=== PATIENT | female | born 1945 | race Caucasian/White ===

== ENCOUNTER 2018-01-25 18:50 | Emergency (ER) | payer MEDICARE, OTHER ==
[~2018-01-25] VITALS: Ht 157.5 cm; Wt 90.7 kg
--- OUTSIDE RECORDS SUMMARY | ~2018-01-25 | XMS | Clinical Summary ---
Demographics + + + | Address | [address] | | | [place] [address] | + + + | Home Phone | | + + + | Preferred Language | Unknown | + + + | Marital Status | Unknown | + + + | Advent Affiliation | Unknown | + + + | Race | Unknown | + + + | Ethnic Group | Unknown | + + + Author + + + | Author | [facility] | | | and [place] | + + + | Organization | [facility] | | | and [place] | + + + | Address | Unknown | + + + | Phone | Unavailable | + + + Support + + +---------+ + | Name | Relationship | Address | Phone | + + +---------+ + | SILVIO TEE | ECON | Unknown | | + + +---------+ + Care Team Providers + +------+ + | Care Cyber Systems Administrator Name | Role | Phone | + +------+ + PP | Unavailable | + +------+ + Allergies Not on File Current Medications Not on file Active Problems Not [...] on file | | + + + Plan of Treatment + + + + + | Health Maintenance | Due Date | Last Done | Comments | + + + + + | Vaccine: | | | | | Dtap/Tdap/Td (1 - | 3 | | | | Tdap) | | | | + + + + + | BREAST CANCER | | | | | SCREENING (MAMM Q2 | 4 | | | | YEARS 50-74) | | | | + + + + + | COLON CANCER | | | | | SCREENING | 4 | | | | (COLONOSCOPY EVERY | | | | | 10 YEARS 50-75) | | | | + + + + + | Vaccine: | | | | | Pneumococcal 65+ | 9 | | | | Low/Medium Risk (1 | | | | | of 2 - PCV13) | | | | + + + + + | Vaccine: Influenza | | | | | (Season Ended) | 8 | | | + + + + + Results Not on filefrom Last 3 Months"
--- OUTSIDE RECORDS SUMMARY | ~2018-01-25 | XMS | Clinical Summary ---
Demographics + + + | Address | [address] | | | [place] [address] | + + + | Home Phone | | + + + | Preferred Language | Unknown | + + + | Marital Status | Unknown | + + + | Confucianism Affiliation | Unknown | + + + | Race | Unknown | + + + | Ethnic Group | Unknown | + + + Author + + + | Author | [facility] | | | and [place] | + + + | Organization | [facility] | | | [...] Team Providers + +------+ + | Care Leases And Land Supervisor Name | Role | Phone | + [...]
[~2018-01-25 18:50] MED LIST: ACETAMINOPHEN325 M1 PO; AMITRIPTYLINE H25 MG PO; CALCIUM ANTACI400 MG PO; CHLORHEXIDINE118 M1 TP; CORTISONE14 GM TP; COUGH CONT100 MG/5 M PO; DIPHENHYDRAMINE25 MG PO; DOCUSATE SODIU100 MG PO; EUCERIN CREME120 GM TP; HYDROGEN PEROXID1 ML TOP; IBUPROFEN600 MG PO; LORAZEPAM1 MG PO; MELATONIN3 MG PO; MELOXICAM15 MG PO; MILK OF MA400 MG/5 M PO; MINERAL OIL25 ML TP; MINERIN CREME454 GM TP; MINERIN LOTION473 ML TP; PHENOBARBITAL60 MG PO; PHENYTOIN SODI200 MG PO; POLYETHYLENE GL17 GM PO; POVIDONE IODIN TP; PROCTOSOL-HC30 GM TOP; PROCTOZONE-HC30 GM RC; RANITIDINE HCL150 MG PO; TRIPLE ANTIBIO3.5 GM; VISTARIL25 MG PO; ZEASORB POWDER71 GM TP; [UNRECOGNIZED DRUG - OTHER]; [UNRECOGNIZED DRUG - OTHER] TP; [UNRECOGNIZED DRUG - OTHER] TP
== END 2018-01-25 19:57 ==
LOC: ED 18:50
DX: T17.920A Food in respiratory tract, part unspecified causing asphyxiation, initial encounter (principal); Z79.899 Other long term (current) drug therapy
CPT/HCPCS: 71045; 99283

== ENCOUNTER 2018-10-02 17:27 | Emergency (ER) | payer MEDICARE, OTHER ==
[~2018-10-02] VITALS: Ht 157.5 cm; Wt 90.7 kg
== END 2018-10-02 19:31 | disposition home or self-care (01) ==
LOC: ED 17:27
DX: S00.33XA Contusion of nose, initial encounter (principal); K21.9 Gastro-esophageal reflux disease without esophagitis; Z79.899 Other long term (current) drug therapy; W10.9XXA Fall (on) (from) unspecified stairs and steps, initial encounter
CPT/HCPCS: 99283

== ENCOUNTER 2019-03-08 05:18 | Inpatient (IN) | payer MEDICARE, OTHER ==
[~2019-03-08] VITALS: Ht 157.5 cm; Wt 87.6 kg
[~2019-03-08 05:18] MED LIST changes: +ADULT WAL-100 MG/5 M PO; -COUGH CONT100 MG/5 M PO; +MINERAL OIL25 ML AU; -MINERAL OIL25 ML TP; +MINERIN CREME113 GM TOP; -MINERIN CREME454 GM TP; +TRIPLE ANTIBIO1 EACH TOP; -TRIPLE ANTIBIO3.5 GM; +ZEASORB POWDER71 GM TOP; -ZEASORB POWDER71 GM TP; -[UNRECOGNIZED DRUG - OTHER] TP
[2019-03-08] MEDS ORDERED: GABAPENTIN300 MG PO (05:29)
[2019-03-08] MEDS ORDERED: SENNA PLUS TAB1 EACH PO (05:30)
[2019-03-08] MEDS ORDERED: OMEPRAZOLE20 MG PO (05:31)
[2019-03-08] MEDS ORDERED: NORTRIPTYLINE H25 MG PO (11:23)
[2019-03-08] MEDS ORDERED: CITRATE OF MAG296 ML PO (11:48)
[2019-03-08] MEDS ORDERED: [UNRECOGNIZED DRUG - OTHER] TOP (11:56)
--- NOTE | 2019-03-09 14:31 | HP ---
[facility] [address] [place], [place] [address] Signed ADMISSION DATE: 03/08/2019 REASON FOR ADMISSION: Fecal impaction with proximal colonic distention. HISTORY: This 73-year-old white woman lives in a care home setting and her primary care physician is Dr. Mcintosh. She has a longstanding history of constipation. She has gone approximately 9 days without bowel movement. She is on a bowel regimen, which is typically followed, which includes Senna Plus tablet on a daily basis. To my knowledge, she is not on a fiber supplement. She does not appear to be particularly ambulatory. She does have mineral oil for her as eardrops, but to my knowledge the mineral oil orally on a p.r.n. basis or otherwise. She has additionally been given magnesium citrate solution as needed and milk of magnesia as needed. Her other medications unrelated to direct bowel caring include a dextromethorphan related cough syrup as needed, Tylenol, antifungal powder for her skin as well as omeprazole 20 mg daily, melatonin 3 mg at night, and nortriptyline 25 mg p.o. daily. Additionally, she takes gabapentin 300 mg three times a day for peripheral neuropathy. The patient presented to the emergency room and was evaluated by Dr. Mcmahan and subsequently Dr. Coffey. Given her significant abdominal distension and apparent discomfort, a CT scan was performed, which showed a dilated proximal colon with solid formed stool episodically noted in the more proximal colon and considerable fecal impaction of the sigmoid in the left and rectum. Additionally noted was marked distention of the bladder with hydroureter. It was postulated that the fecal impaction may be accounting for the bladder distention. Upon discussion with the emergency room physician, a Jerez catheter was placed and decompression of approximately 1900 mL of urine was noted. The patient did get some morphine for pain control. The patient is now on the white, having been admitted to my service for further evaluation and management. PAST MEDICAL HISTORY: Does include developmental delay as previously noted. She is known to have peripheral neuropathy as described. She has had no surgical intervention in the past, but one is Electronically Signed By: SHIRAZ SAVAGE MD 03/09/19 1431 PATIENT NAME: HILARY EDWARDS HISTORY AND PHYSICAL DATE OF : 43 REPORT #: [id number] PHYSICIAN: SHIRAZ SAVAGE MD PCP: GUY MCINTOSH DO REPORT IS CONFIDENTIAL AND NOT TO BE RELEASED WITHOUT AUTHORIZATION [facility] [address] [place], [place] [address] Signed aware of. She is known to have history of aspiration, chronic constipation, reflux disease, and mental retardation with developmental delay. REVIEW OF SYSTEMS: Noncontributory given her inability to interact at this time. PHYSICAL EXAMINATION: GENERAL: This is a white woman who does not look systemically toxic. HEENT: She has protruding lips. Mucous membranes are relatively moist and IV is running. Her trachea is midline. CHEST: Shows no sign of dyspnea or tachypnea in any way. Heart is regular. ABDOMEN: Distended, not with peritoneal signs particularly. There is minimal tenderness. In the left lateral decubitus position, the perineum was examined. There was a bit of stool in the outside of the perianal area. Digital examination shows considerable amount of rectal vault stool. Fecal disimpaction was undertaken by me at this time with nurse at standby. A considerable amount of stool was removed. The stool was moderately firm, but not rock-hard by any means. There was no palpable mass. Disimpaction was undertaken as far as possible until at point of flatus. There remains a fair amount of stool, I am sure. Patient has typical risk factors for a marked fecal impaction including immobility, psychiatric (mental development) issues, inactivity, and no apparent fiber supplement. I have performed fecal disimpaction as an initial maneuver and at this point, enema therapy will be beneficial most likely. She is getting IV fluids. I would not have her eating quite at this point, though she could try some liquids probably. Until more of the distal fecal burden is reduced, would avoid agents from above. There appears no clinical or radiographic evidence of perforation or stercoral ulceration proper. It is see erratically possible that the fecal impaction has caused the bladder outlet obstructive process now decompressed with a Jerez catheter. The chronicity of the problem of bladder distention is manifest by hydroureter on imaging studies. She is said to have a pelvic mass which may require additional intervention. At this point, we will initiate enema therapy and if additional manual disimpactions required, sedation may additionally be of benefit. Shiraz Savage MD Electronically Signed By: SHIRAZ SAVAGE MD 03/09/19 1431 PATIENT NAME: HILAYR EDWARDS HISTORY AND PHYSICAL DATE OF : 43 REPORT #: [id number] PHYSICIAN: SHIRAZ SAVAGE MD PCP: GUY MCINTOSH DO REPORT IS CONFIDENTIAL AND NOT TO BE RELEASED WITHOUT AUTHORIZATION [place] [id number] Signed RITESH/ROSINA /[id number] cc: DO Kash Nails Dr. Copies: GUY MCINTOSH PHONG ~ Electronically Signed By: SHIRAZ SAVAGE MD 03/09/19 1431 PATIENT NAME: JERRYHILARY HISTORY AND PHYSICAL DATE OF : 43 REPORT #: [id number] PHYSICIAN: SHIRAZ SAVAGE MD PCP: GUY MCINTOSH DO REPORT IS CONFIDENTIAL AND NOT TO BE RELEASED WITHOUT AUTHORIZATION
[2019-03-11] MEDS ORDERED: TAMSULOSIN HCL0.4 MG PO (14:27)
[2019-03-11] MEDS ORDERED: HEALTHYLAX17 GM PO (14:28)
[2019-03-11] MEDS ORDERED: KONSYL PSYLLIU3.4 GM PO (14:28)
--- NOTE | 2019-03-12 07:59 | DS ---
[facility] [address] [place], [place] [address] Signed ADMISSION DATE: 03/08/2019 DISCHARGE DATE: 03/11/2019 REASON FOR ADMISSION: This 73-year-old white woman has mental retardation and developmental delay and lives in a nursing home setting with her primary and her primary care physician is Dr. Prabhu Mcintosh. She has a longstanding history of constipation. She has gone most recently approximately 10 days without bowel movement. She is on a bowel regimen, which when typically followed include Senna Plus tablets on a daily basis. She is not on a fiber supplement. She is not on MiraLAX. She has p.r.n. milk of magnesia. She uses no other cathartics generally. She presented to the emergency room with abdominal distention, tenderness, and so forth. Findings were clinically consistent with obstruction of the bowel. She was initially evaluated by Dr. Mcmahan and subsequently by Dr. Coffey and given her abdominal distention, a CT scan was performed, which showed impressive fecal impaction of the low rectum, sigmoid, and proximal dilation of the colon. Concurrently, she was noted to have marked distention of the bowel with hydroureter bilaterally likely bladder obstructed by the fecal impaction as well. She was admitted for further evaluation and care. PERTINENT PHYSICAL EXAMINATION: GENERAL: This is essentially non-relational white woman who does not look systemically toxic. She has an underbite. Trachea is midline. She has no carotid bruit. CHEST: Clear. HEART: Regular without murmur. ABDOMEN: Markedly distended, not particularly tender, however. EXTREMITIES: Showed no clubbing, cyanosis, or edema. Her CT scan showed marked fecal impaction. HOSPITAL COURSE: She has directly admitted to the hospital and given intravenous fluids. Her white count was elevated to 12.6. Her urinalysis was considered normal. A Jerez catheter was placed, which drained 1900 mL of clear yellow urine. Upon my first evaluation, I performed at bedside fecal disimpaction. Approximately 2 and maybe more [employer] can sized amounts of stool were extracted from the rectum. Electronically Signed By: SHIRAZ SAVAGE MD 03/12/19 0759 PATIENT NAME: HILARY EDWARDS DISCHARGE SUMMARY DATE OF : 43 REPORT #: [id number] PHYSICIAN: SHIRAZ SAVAGE MD PCP: PRABHU MCINTOSH DO REPORT IS CONFIDENTIAL AND NOT TO BE RELEASED WITHOUT AUTHORIZATION [facility] [address] [place], [place] [address] Signed This was undertaken till the rectal vault was essentially cleared and flatus was noted. This was reasonably well tolerated by the patient. She was then begun on enema therapy, which included sorbitol and docusate in water. Three sets liters were administered. She then had improvement based on abdominal KUB and subsequent magnesium citrate was given orally. This had little effect initially and repeated showing good effect. Serial abdominal x-ray showed decompression of the bowel and improvement of her impaction. A voiding trial was undertaken upon removal of her catheter after 48 hours of decompression. She failed this unfortunately. She had retention of 540 mL of urine and on that basis, urologic consultation was undertaken with Dr. Ron. The catheter was replaced notably. Consultation with Dr. Ron included the initiation of Flomax. She has recommended prolonged decompression of the bladder for at least 2 weeks, possibly 3 as well as use of Flomax and a voiding trial to be undertaken as an outpatient under her direction. The patient has been started on MiraLAX one packet daily as well as Citrucel one packet daily. Inquiry was made as to whether lactulose might be possible from her caregiver and it is not considered an appropriate approach in this situation. DISCHARGE PLAN: She will return to see Dr. Ron in 2 to 3 weeks and a voiding trial will be undertaken at that time. She will follow up with Dr. Mcintosh on usual basis. She will not be having followup in my office. MEDICATIONS: Her discharge medications will include: 1. Flomax (tamsulosin) 0.4 mg p.o. q.24 hours. 2. Polyethylene glycol 3350, 17 g powder pack b.i.d. 3. Psyllium husk with sugar, Konsyl psyllium fiber packet 3.4 g p.o. daily, #30, refills 12. 4. Continued use of melatonin 3 mg p.o. q.h.s. 5. Mineral oil to ears as needed for wax buildup. 6. Minerin Cream applied topically to feet for dry skin. 7. NutriCare oral paste as needed. 8. Tylenol 650 p.o. q.4 hours as needed for fever. 9. Guaifenesin 100 mg/5 mL 15 mL q.i.d. as needed for cough. Electronically Signed By: SHIRAZ SVAAGE MD 03/12/19 0759 PATIENT NAME: HILARY EDWARDS DISCHARGE SUMMARY DATE OF : 43 REPORT #: [id number] PHYSICIAN: SHIRAZ SAVAGE MD PCP: PRABHU MCINTOSH DO REPORT IS CONFIDENTIAL AND NOT TO BE RELEASED WITHOUT AUTHORIZATION [address] [address] Signed 10. Magnesium hydroxide (milk of magnesia) 400 mg/5 mL 30 mL orally as needed for constipation (mindful of continued use of regimen as noted above). 11. Zeasorb powder 71 g powder, applied topically as needed in shoes. 12. Triple antibiotic ointment topically as needed. 13. Gabapentin 300 mg p.o. t.i.d. 14. Omeprazole 20 mg p.o. daily. 15. Nortriptyline 25 mg p.o. q.h.s. 16. Magnesium citrate 296 mL as needed for constipation episode. 17. Emollient Combination No. 108 (Lubriskin) applied topically as needed for dry skin. She will discontinue for the time being senna Plus tablet given daily. DISCHARGE DIAGNOSES: 1. Severe and advanced and extreme fecal impaction with obstruction of colon and secondary obstruction of bladder. 2. Markedly distended bladder with hydroureter (1900 mL). 3. Mentally retarded, developmental delay. 4. Insomnia. Shiraz Savage MD /MODL /[id number] cc: MD Prabhu Dover DO Copies: KEYONA RON MD, ARIAN DO ~ Electronically Signed By: SHIRAZ SAVAGE MD 03/12/19 0759 PATIENT NAME: HILARY EDWARDS DISCHARGE SUMMARY DATE OF : 43 REPORT #: [id number] PHYSICIAN: SHIRAZ SAVAGE MD PCP: PRABHU MCINTOSH DO REPORT IS CONFIDENTIAL AND NOT TO BE RELEASED WITHOUT AUTHORIZATION
== END 2019-03-11 15:30 | disposition home or self-care (01) | DRG 389 ==
LOC: ED 05:18 → MS 05:19 → ED 05:19 → MS 12:25
PROVIDERS: ADMIT Surgery
DX: K56.41 Fecal impaction (principal); N13.4 Hydroureter; F79 Unspecified intellectual disabilities; K59.09 Other constipation; N32.0 Bladder-neck obstruction; K21.9 Gastro-esophageal reflux disease without esophagitis; N32.89 Other specified disorders of bladder; R33.9 Retention of urine, unspecified; G62.9 Polyneuropathy, unspecified; G47.00 Insomnia, unspecified; Z86.59 Personal history of other mental and behavioral disorders; Z79.899 Other long term (current) drug therapy
CPT/HCPCS: 36415; 51702; 51798; 74018; 74177; 80048; 80053; 81001; 83690; 85025; 99285-25; J1644; J1885; J2270; J2405; J7040; J7120

== ENCOUNTER 2019-08-07 16:35 | Emergency (ER) | payer MEDICARE, OTHER ==
[~2019-08-07] VITALS: Ht 157.5 cm; Wt 86.3 kg
--- OUTSIDE RECORDS SUMMARY | ~2019-08-07 | XMS | Clinical Summary ---
Demographics + + + | Address | [address] | | | [place] [address] | + + + | Home Phone | | + + + | Preferred Language | Unknown | + + + | Marital Status | Unknown | + + + | Druze Affiliation | Unknown | + + + | Race | Unknown | + + + | Ethnic Group | Unknown | + + + Author + + + | Author | [facility] | | | and [place] | + + + | Organization | [facility] | | [...] Team Providers + +------+ + | Care Supervisor Coke Handling Name | Role | Phone | + [...]
--- OUTSIDE RECORDS SUMMARY | ~2019-08-07 | XMS | Clinical Summary ---
Demographics + + + | Address | [address] | | | [place] [address] | + + + | Home Phone | | + + + | Preferred Language | Unknown | + + + | Marital Status | Unknown | + + + | Presybeterian Affiliation | Unknown | + + + | Race | Unknown | + + + | Ethnic Group | Unknown | + + + Author + + + | Author | [facility] | | | and [place] | + + + | Organization | [facility] | | [...] Team Providers + +------+ + | Care Blast Furnace Auxiliaries Supervisor Name | Role | Phone | [...]
[~2019-08-07 16:35] MED LIST changes: +CITRATE OF MAG296 ML PO; +ERYTHROMYCIN1 GM OD; +GABAPENTIN300 MG PO; +HEALTHYLAX17 GM PO; +KONSYL PSYLLIU3.4 GM PO; +NORTRIPTYLINE H25 MG PO; +OMEPRAZOLE20 MG PO; +SENNA PLUS TAB1 EACH PO; +TAMSULOSIN HCL0.4 MG PO; +[UNRECOGNIZED DRUG - OTHER] TOP
--- OUTSIDE RECORDS SUMMARY | 2019-08-07 16:38 | XMS ---
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 Care History Medical/Surgical 04/08/2019 [facility] - Patient is currently established with [facility]. If patient is seen in the ED during business hours. Please contact CHWs at [facility]. Care Recommendation: This patient has had 5 or more Emergency Department visits in the last 12 months.\T\nbsp; Patient requires education on the scope and purpose of the ED as an acute care provider not a Primary Care Provider and should not be utilized for chronic conditions.\T\nbsp; These are guidelines and the provider should exercise clinical judgment when providing care. E.D. VISIT COUNT (12 MO.) 4 [facility] TOTAL 4 NOTE: Visits indicate total known visits. ED/UCC VISIT TRACKING (12 MO.) 08/07/2019 16:35 [facility] TYPE: Emergency COMPLAINT: - CATHETER ISSUE 04/07/2019 12:37 [facility] TYPE: Emergency COMPLAINT: - R EYE PAIN DIAGNOSES: - Unspecified conjunctivitis - Other exterminator (current) drug therapy - OTHER SPECIFIED DISORDERS OF EYE AND ADNEXA - Gastro-esophageal reflux disease without esophagitis 03/08/2019 05:18 [facility] TYPE: Emergency COMPLAINT: - SEVERE FECAL IMPACTION, BLADDER OBSTRUCTION 10/02/2018 17:28 [facility] TYPE: Emergency COMPLAINT: - HEAD INJURY DIAGNOSES: - Fall (on) (from) unspecified stairs and steps, init encntr - Epistaxis - Gastro-esophageal reflux disease without esophagitis - Contusion of nose, initial encounter - Other exterminator (current) drug therapy INPATIENT VISIT TRACKING (12 MO.) 03/08/2019 12:[address] [facility] TYPE: Medical Surgical COMPLAINT: - SEVERE FECAL IMPACTION, BLADDER OBSTRUCTION DIAGNOSES: - Gastro-esophageal reflux disease without esophagitis - Other constipation - Unspecified intellectual disabilities - Polyneuropathy, unspecified - Insomnia, unspecified - Fecal impaction - Other specified disorders of bladder - Other exterminator (current) drug therapy - Gastro-esophageal reflux disease without esophagitis - Hydroureter - Bladder-neck obstruction - Insomnia, unspecified - Personal history of other mental and behavioral disorders - Other constipation - Bladder-neck obstruction - Personal history of other mental and behavioral disorders - Other specified disorders of bladder - Polyneuropathy, unspecified - Retention of urine, unspecified - Other snf (current) drug therapy - Unspecified intellectual disabilities - Hydroureter - Retention of urine, unspecified [email or web address]
[2019-08-07] MEDS ORDERED: REMERON30 MG PO (16:56)
== END 2019-08-07 17:19 | disposition home or self-care (01) ==
LOC: ED 16:35
PROC: 0T9B70Z Drainage of Bladder with Drainage Device, Via Natural or Artificial Opening (ICD-10-PCS; principal; 2019-08-07)
DX: T83.031A Leakage of indwelling urethral catheter, initial encounter (principal); K21.9 Gastro-esophageal reflux disease without esophagitis; Z79.899 Other long term (current) drug therapy
CPT/HCPCS: 51702; 99283-25

== ENCOUNTER 2019-09-29 17:41 | Emergency (ER) | payer MEDICARE, OTHER ==
[~2019-09-29] VITALS: Ht 157.5 cm; Wt 90.8 kg
--- OUTSIDE RECORDS SUMMARY | ~2019-09-29 | XMS | Clinical Summary ---
Demographics + + + | Address | [address] | | | [place] [address] | + + + | Home Phone | | + + + | Preferred Language | Unknown | + + + | Marital Status | Unknown | + + + | Mandaen Affiliation | Unknown | + + + | Race | Unknown | + + + | Ethnic Group | Unknown | + + + Author + + + | Author | [facility] | | | and [place] | + + + | Organization | [facility] | | | and [place] [...] Team Providers + +------+ + | Care Licensed Clinician Name | Role | Phone | + [...] on file | | + + + + + + + | Job Start Date | Occupation | Industry | + + + + | Not on file | Not on file | Not on file | + + + + + + + + | Travel History | Travel Start | Travel End | + + + + + + | No recent travel history available. | + + Last Filed Vital Signs Not on file Plan of Treatment + + + + + | Health Maintenance | Due Date | Last Done | Comments | + + + + + | Vaccine: | | | | | Dtap/Tdap/Td (1 - | 5 | | | | Tdap) | | | | + + + + + | Vaccine: Zoster (1 | | | | | of 2) | 4 | | | + + + + + | Breast Cancer | | | | | Screening | 9 | | | + + + + + | Vaccine: | | | | | Pneumococcal 65+ (1 | 9 | | | | of 2 - PCV13) | | | | + + + + + | Vaccine: Influenza | | | | | (#1) | 9 | | | + + + + + Results Not on filefrom Last 3 Months"
--- OUTSIDE RECORDS SUMMARY | ~2019-09-29 | XMS | Clinical Summary ---
Demographics + + + | Address | [address] | | | [place] [address] | + + + | Home Phone | | + + + | Preferred Language | Unknown | + + + | Marital Status | Unknown | + + + | Mu-Ism Affiliation | Unknown | + + + | Race | Unknown | + + + | Ethnic Group | Unknown | + + + Author + + + | Author | [facility] | | | and [place] | + + + | Organization | [facility] | | | and [place] [...] Team Providers + +------+ + | Care Erp Project Manager Name | Role | Phone | + [...]
--- OUTSIDE RECORDS SUMMARY | ~2019-09-29 | XMS | Encounter Summary ---
Demographics + + + | Address | [address] | | | [place] [address] | + + + | Home Phone | | + + + | Preferred Language | Unknown | + + + | Marital Status | Unknown | + + + | Baptist Affiliation | Unknown | + + + | Race | Unknown | + + + | Ethnic Group | Unknown | + + + Author + + + | Author | [facility] | | | and [place] | + + + | Organization | [facility] | | | and [place] | [...] Team Providers + +------+ + | Care Machine Etcher Name | Role | Phone | + +------+ + PCP | Unavailable | + +------+ + Encounter Details +--------+ + + + + | Date | Type | Department | Care Team | Description | +--------+ + + + + | 10/30/ | Hospital | [facility] | | | | 1995 | Encounter | MED CTR GENERIC OP | | | | | | CONV DEPT [address] | | | | | | [place], | | | | | | [place] [address] | | | | | | [phone] | | | +--------+ + + + [...] recent travel history available. | + + documented as of this encounter Plan of Treatment Not on filedocumented as of this encounter Visit Diagnoses Not on filedocumented in this encounter"
--- OUTSIDE RECORDS SUMMARY | ~2019-09-29 | XMS | Encounter Summary ---
Demographics + + + | Address | [address] | | | [place] [address] | + + + | Home Phone | | + + + | Preferred Language | Unknown | + + + | Marital Status | Unknown | + + + | Presybeterian Affiliation | Unknown | + + + | Race | Unknown | + + + | Ethnic Group | Unknown | + + + Author + + + | Author | [facility] | | | and [place] | + + + | Organization | [facility] | | | and [place] | [...] Team Providers + +------+ + | Care Headliner Installer Name | Role | Phone | + +------+ + PCP | Unavailable | + +------+ + Encounter Details +--------+ + + + + | Date | Type | Department | Care Team | Description | +--------+ + + + + | 10/30/ | Hospital | [facility] | | | | 1996 | Encounter | MED CTR GENERIC OP | | | | | | CONV DEPT [address] | | | | | | [place], | | | | | | [place] [address] | | | | | | [phone] | | | +--------+ + + + [...]
[~2019-09-29 17:41] MED LIST changes: +REMERON30 MG PO
--- OUTSIDE RECORDS SUMMARY | 2019-09-29 17:44 | XMS ---
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 Care History Medical/Surgical 08/10/2019 [facility] Patient\T\nbsp; has appt in Dr Faria office 08/13/2019 @ 10:30am for Cath Change. 04/08/2019 [facility] - Patient is currently established with [facility]. If patient is seen in the ED during business hours. Please contact CHWs at [facility]. Care Recommendation: This patient has had 5 [...] providing care. E.D. VISIT COUNT (12 MO.) 5 [facility] TOTAL 5 NOTE: Visits indicate total known visits. ED/UCC VISIT TRACKING (12 MO.) 09/29/2019 17:41 [facility] TYPE: Emergency COMPLAINT: - CATHETER PROBLEM 08/07/2019 16:35 [facility] TYPE: Emergency COMPLAINT: - CATHETER ISSUE DIAGNOSES: - Leakage of indwelling urethral catheter, initial encounter - Other exterminator helper (current) drug therapy - Gastro-esophageal reflux disease without esophagitis 04/07/2019 12:37 [facility] TYPE: Emergency COMPLAINT: - R EYE PAIN DIAGNOSES: - Unspecified conjunctivitis - Other exterminator helper (current) drug therapy - OTHER SPECIFIED DISORDERS OF EYE AND ADNEXA - Gastro-esophageal reflux disease without esophagitis - Other specified disorders of eye and adnexa 03/08/2019 05:18 [facility] TYPE: Emergency COMPLAINT: - SEVERE FECAL IMPACTION, BLADDER OBSTRUCTION 10/02/2018 17:28 [facility] TYPE: Emergency COMPLAINT: - HEAD INJURY DIAGNOSES: - Fall (on) (from) unspecified stairs and steps, init encntr - Epistaxis - Gastro-esophageal reflux disease without esophagitis - Contusion of nose, initial encounter - Other exterminator helper (current) drug therapy INPATIENT VISIT TRACKING (12 MO.) 03/08/2019 12:25 [facility] TYPE: Medical Surgical COMPLAINT: - SEVERE FECAL IMPACTION, BLADDER OBSTRUCTION DIAGNOSES: - Gastro-esophageal reflux disease without esophagitis - Other constipation - Unspecified intellectual disabilities - Polyneuropathy, unspecified - Insomnia, unspecified - Fecal impaction - Other specified disorders of bladder - Other exterminator helper (current) drug therapy - Gastro-esophageal reflux disease without esophagitis - Hydroureter - Bladder-neck obstruction - Insomnia, unspecified - Personal history of other mental and behavioral disorders - Other constipation - Bladder-neck obstruction - Personal history of other mental and behavioral disorders - Other specified disorders of bladder - Polyneuropathy, unspecified - Retention of urine, unspecified - Other chcf (current) drug therapy - Unspecified intellectual disabilities - Hydroureter - Retention of urine, unspecified [email or web address]
[2019-09-29] MEDS ORDERED: METAMUCIL POWD174 GM PO (20:19)
== END 2019-09-29 18:21 | disposition home or self-care (01) ==
LOC: ED 17:41
DX: Z46.6 Encounter for fitting and adjustment of urinary device (principal); K21.9 Gastro-esophageal reflux disease without esophagitis; Z79.899 Other long term (current) drug therapy
CPT/HCPCS: 51702; 99283-25

== ENCOUNTER 2019-10-10 19:03 | Emergency (ER) | payer MEDICARE, OTHER ==
[~2019-10-10] VITALS: Ht 157.5 cm; Wt 90.8 kg
== END 2019-10-10 20:36 | disposition home or self-care (01) ==
LOC: ED 19:03
DX: T83.038A Leakage of other urinary catheter, initial encounter (principal); N39.0 Urinary tract infection, site not specified; K21.9 Gastro-esophageal reflux disease without esophagitis; Z79.899 Other long term (current) drug therapy
CPT/HCPCS: 51702; 81001; 99283-25

== ENCOUNTER 2019-10-24 03:08 | Emergency (ER) | payer MEDICARE, OTHER ==
[~2019-10-24] VITALS: Ht 157.5 cm; Wt 90.8 kg
[~2019-10-24 03:08] MED LIST changes: +KEFLEX500 MG PO; +METAMUCIL POWD174 GM PO
--- OUTSIDE RECORDS SUMMARY | 2019-10-24 03:10 | XMS ---
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 Care History Medical/Surgical 10/12/2019 [facility] Follow up on 10/15/[address] Faria 10/01/2019 [facility] Patient has prior scheduled appt. with ;Bienvenido on 10/15/2019. 08/10/2019 [facility] Patient\T\nbsp; has appt in Dr Faria office 08/13/2019 @ 10:30am for Kerrie Crowell E.D. VISIT COUNT (12 MO.) [address] [facility] TOTAL 6 NOTE: Visits indicate total known visits. ED/UCC VISIT TRACKING (12 MO.) [facility] COMPLAINT: - CATHETER PROBLEM 10/10/2019 19:04 [facility] TYPE: Emergency COMPLAINT: - CATHETER PROBLEM DIAGNOSES: - Leakage of other urinary catheter, initial encounter - Leakage of other urinary catheter, initial encounter - Other terminal press operator (current) drug therapy - Gastro-esophageal reflux disease without esophagitis - Urinary tract infection, site not specified - Urinary tract infection, site not specified 09/29/2019 17:41 [facility] TYPE: Emergency COMPLAINT: - CATHETER PROBLEM DIAGNOSES: - Gastro-esophageal reflux disease without esophagitis - Encounter for fitting and adjustment of urinary device - Other [place] [facility] (current[facility] drug therapy - Encounter for fitting and adjustment of urinary device 08/07/2019 16:35 [facility] TYPE: Emergency COMPLAINT: - CATHETER ISSUE DIAGNOSES: - Leakage of indwelling urethral catheter, initial encounter - Other terminal press operator (current) drug therapy - Gastro-esophageal reflux disease without esophagitis 04/07/2019 12:37 [facility] TYPE: Emergency COMPLAINT: - R EYE PAIN DIAGNOSES: - Unspecified conjunctivitis - Other terminal press operator (current) drug therapy - OTHER SPECIFIED DISORDERS OF EYE AND ADNEXA - Gastro-esophageal reflux disease without esophagitis - Other specified disorders of eye and adnexa 03/08/2019 05:18 [facility] TYPE: Emergency COMPLAINT: - SEVERE FECAL IMPACTION, BLADDER OBSTRUCTION INPATIENT VISIT TRACKING (12 MO.) 03/08/2019 12:25 [facility] TYPE: Medical Surgical COMPLAINT: - SEVERE FECAL IMPACTION, BLADDER OBSTRUCTION DIAGNOSES: - Gastro-esophageal reflux disease without esophagitis - Other constipation - Unspecified intellectual disabilities - Polyneuropathy, unspecified - Insomnia, unspecified - Fecal impaction - Other specified disorders of bladder - Other terminal press operator (current) drug therapy - Gastro-esophageal reflux disease without esophagitis - Hydroureter - Bladder-neck obstruction - Insomnia, unspecified - Personal history of other mental and behavioral disorders - Other constipation - Bladder-neck obstruction - Personal history of other mental and behavioral disorders - Other specified disorders of bladder - Polyneuropathy, unspecified - Retention of urine, unspecified - Other [place] [facility] [place] (current) drug therapy - Unspecified intellectual disabilities - Hydroureter - Retention of urine, unspecified [email or web address]
== END 2019-10-24 03:57 | disposition home or self-care (01) ==
LOC: ED 03:08
DX: Z46.6 Encounter for fitting and adjustment of urinary device (principal); K21.9 Gastro-esophageal reflux disease without esophagitis; Z79.899 Other long term (current) drug therapy
CPT/HCPCS: 51702; 99283-25

== ENCOUNTER 2019-10-29 17:27 | Emergency (ER) | payer MEDICARE, OTHER ==
[~2019-10-29] VITALS: Ht 157.5 cm; Wt 90.8 kg
[2019-10-29] MEDS ORDERED: HEALTHYLAX17 GM PO (18:14)
[2019-10-29] MEDS ORDERED: MINERIN CREME113 GM TOP (18:15)
[2019-10-29] MEDS ORDERED: ZEASORB AF71 GM TOP (18:16)
[2019-10-29] MEDS ORDERED: TYLENOL325 MG PO (18:17)
[2019-10-29] MEDS ORDERED: CITRATE OF MAG296 ML PO (18:18)
[2019-10-29] MEDS ORDERED: MILK OF MA400 MG/5 M PO (18:19)
[2019-10-29] MEDS ORDERED: TUSSIN COUGH15 MG PO (18:20)
== END 2019-10-29 20:00 | disposition home or self-care (01) ==
LOC: ED 17:27
DX: Z46.6 Encounter for fitting and adjustment of urinary device (principal); K21.9 Gastro-esophageal reflux disease without esophagitis; Z79.899 Other long term (current) drug therapy
CPT/HCPCS: 51702; 99283-25

== ENCOUNTER 2020-06-12 14:42 | Emergency (ER) | payer MEDICARE, OTHER ==
[~2020-06-12] VITALS: Ht 157.5 cm; Wt 90.8 kg
[~2020-06-12 14:42] MED LIST changes: +TUSSIN COUGH15 MG PO; +TYLENOL325 MG PO; +ZEASORB AF71 GM TOP
--- OUTSIDE RECORDS SUMMARY | 2020-06-12 14:46 | XMS ---
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 Care History Medical/Surgical 10/26/2019 [facility] - CATH CHANGE APT -SCHEDULED WITH DR RON-UROLOGIST- 10/27/19. 10/12/2019 [facility] Follow up on 10/15/[address] Ron 10/01/2019 [facility] Patient has prior scheduled appt. with \Nikhil on 10/15/2019. E.D. VISIT COUNT (12 MO.) 6 [facility]. TOTAL 6 NOTE: Visits indicate total known visits. ED/UCC VISIT TRACKING (12 MO.) 06/12/2020 14:43 [facility] TYPE: Emergency COMPLAINT: - CATHETER PROBLEM 10/29/2019 17:27 [facility] TYPE: Emergency COMPLAINT: - CATHETER PROBLEM DIAGNOSES: - Other exterminator helper termite (current) drug therapy - Gastro-esophageal reflux disease without esophagitis - Encounter for fitting and adjustment of urinary device 10/24/2019 03:09 [facility] TYPE: Emergency COMPLAINT: - CATHETER PROBLEM DIAGNOSES: - Encounter for fitting and adjustment of urinary device - Gastro-esophageal reflux disease without esophagitis - Other nursing home (current) drug therapy 10/10/2019 19:04 [facility] TYPE: Emergency COMPLAINT: - CATHETER PROBLEM DIAGNOSES: - Leakage of other urinary catheter, initial encounter - Leakage of other urinary catheter, initial encounter - Other exterminator helper termite (current) drug therapy - Gastro-esophageal reflux disease without esophagitis - Urinary tract infection, site not specified - Urinary tract infection, site not specified 09/29/2019 17:41 [facility] TYPE: Emergency COMPLAINT: - CATHETER PROBLEM DIAGNOSES: - Gastro-esophageal reflux disease without esophagitis - Encounter for fitting and adjustment of urinary device - Other nursing home (current) drug therapy - Encounter for fitting and adjustment of urinary device 08/07/2019 16:35 [facility] TYPE: Emergency COMPLAINT: - CATHETER ISSUE DIAGNOSES: - Leakage of indwelling urethral catheter, initial encounter - Other exterminator helper termite (current) drug therapy - Gastro-esophageal reflux disease without esophagitis INPATIENT VISIT TRACKING (12 MO.) No inpatient visits to display in this time frame [email or web address]
[2020-06-12] MEDS ORDERED: METAMUCIL POWD174 GM PO (15:16)
[2020-06-12] MEDS ORDERED: MILK OF MA400 MG/5 M PO (15:18)
== END 2020-06-12 17:02 | disposition home or self-care (01) ==
LOC: ED 14:42
DX: T83.83XA Hemorrhage due to genitourinary prosthetic devices, implants and grafts, initial encounter (principal); K21.9 Gastro-esophageal reflux disease without esophagitis; Z79.899 Other long term (current) drug therapy
CPT/HCPCS: 51702; 81001; 99283-25

== ENCOUNTER 2020-06-17 11:58 | Emergency (ER) | payer MEDICARE, OTHER ==
[~2020-06-17] VITALS: Ht 157.5 cm; Wt 90.8 kg
--- OUTSIDE RECORDS SUMMARY | ~2020-06-17 | XMS | Clinical Summary ---
Demographics + + + | Address | [address] | | | [place] [address] | + + + | Home Phone | | + + + | Preferred Language | Unknown | + + + | Marital Status | Unknown | + + + | Yarsani Affiliation | Unknown | + + + | Race | Unknown | + + + | Ethnic Group | Unknown | + + + Author + + + | Author | [facility] | | | and [place] | + + + | Organization | [facility] | | | and [place] [...] Team Providers + +------+ + | Care [place] [employer] [place] Fruit Crop Farmer Name | Role | Phone | + [...]
--- OUTSIDE RECORDS SUMMARY | ~2020-06-17 | XMS | Encounter Summary ---
Demographics + + + | Address | [address] | | | [place] [address] | + + + | Home Phone | | + + + | Preferred Language | Unknown | + + + | Marital Status | Unknown | + + + | Jew Affiliation | Unknown | + + + | Race | Unknown | + + + | Ethnic Group | Unknown | + + + Author + + + | Author | [facility] | | | and [place] | + + + | Organization | [facility] | | | and [...] Team Providers + +------+ + | Care Hot Iron Worker Name | Role | Phone | + +------+ + PCP | Unavailable | + +------+ + Encounter Details +--------+ + + + + | Date | Type | Department | Care Team | Description | +--------+ + + + + | 10/30/ | Hospital | [facility] | | | | 1996 | Encounter | MED CTR GENERIC OP | | | | | | CONV DEPT [address] | | | | | | [place], | | | | | | [place] [address] | | | | | | [phone] | | | +--------+ + + + [...]
--- OUTSIDE RECORDS SUMMARY | 2020-06-17 12:00 | XMS ---
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 Care History Medical/Surgical 10/26/2019 [facility] - CATH CHANGE APT -SCHEDULED WITH DR RON-UROLOGIST- 10/27/19. 10/12/2019 [facility] Follow up on 10/15/[address] Ron 10/01/2019 [facility] Patient has prior scheduled appt. with on 10/15/2019. E.DPetra VISIT COUNT (12 MO.) 7 [facility]. TOTAL 7 NOTE: Visits indicate total known visits. 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, implants - Gastro-esophageal reflux disease without esophagitis 10/29/2019 17:27 [facility] TYPE: Emergency COMPLAINT: - CATHETER PROBLEM DIAGNOSES: - Other long wall mining machine tender (current) drug therapy - Gastro-esophageal reflux disease without esophagitis - Encounter for fitting and adjustment of urinary device 10/24/2019 03:09 [facility] TYPE: Emergency COMPLAINT: - CATHETER PROBLEM DIAGNOSES: - Encounter for fitting and adjustment of urinary device - Gastro-esophageal reflux disease without esophagitis - Other usp (current) drug therapy 10/10/2019 19:04 [facility] TYPE: Emergency COMPLAINT: - CATHETER PROBLEM DIAGNOSES: - Leakage of other urinary catheter, initial encounter - Leakage of other urinary catheter, initial encounter - Other long wall mining machine tender (current) drug therapy - Gastro-esophageal reflux disease without esophagitis - Urinary tract infection, site not specified - Urinary tract infection, site not specified 09/29/2019 17:41 [facility] TYPE: Emergency COMPLAINT: - CATHETER PROBLEM DIAGNOSES: - Gastro-esophageal reflux disease without esophagitis - Encounter for fitting and adjustment of urinary device - Other usp (current) drug therapy - Encounter for fitting and adjustment of urinary device 08/07/2019 16:[address] [facility] TYPE: Emergency COMPLAINT: - CATHETER ISSUE DIAGNOSES: - Leakage of indwelling urethral catheter, initial encounter - Other long wall mining machine tender (current) drug therapy - Gastro-esophageal reflux disease without esophagitis INPATIENT VISIT TRACKING (12 MO.) No inpatient visits to display in this time frame [id number]
== END 2020-06-17 14:30 | disposition home or self-care (01) ==
LOC: ED 11:58
DX: R51 Headache (principal); K21.9 Gastro-esophageal reflux disease without esophagitis; Z79.899 Other long term (current) drug therapy
CPT/HCPCS: 99283; A9270

== ENCOUNTER 2020-07-16 11:04 | Emergency (ER) | payer MEDICARE, OTHER ==
[~2020-07-16 11:04] MED LIST changes: +TUSSIN COU15 MG/5 M1 PO; -TUSSIN COUGH15 MG PO
--- OUTSIDE RECORDS SUMMARY | 2020-07-16 16:40 | XMS ---
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 Care History Medical/Surgical 10/26/2019 [facility] - CATH CHANGE APT -SCHEDULED WITH DR RON-UROLOGIST- 10/27/19. 10/12/2019 [facility] Follow up on 10/15/[address] Ron 10/01/2019 [facility] Patient has prior scheduled appt. with on 10/15/2019. E.DPetra VISIT COUNT (12 MO.) 8 [facility]. TOTAL 8 NOTE: Visits indicate total known visits. 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 TYPE: Emergency COMPLAINT: - CATHETER PROBLEM DIAGNOSES: - Encounter for fitting and adjustment of urinary device - Gastro-esophageal reflux disease without esophagitis - Other extract puller (current) drug therapy 10/10/2019 19:04 [facility] TYPE: Emergency COMPLAINT: - CATHETER PROBLEM DIAGNOSES: - Leakage of other urinary catheter, initial encounter - Leakage of other urinary catheter, initial encounter - Other extract puller (current) drug therapy - Gastro-esophageal reflux disease without esophagitis - Urinary tract infection, site not specified - Urinary tract infection, site not specified 09/29/2019 17:41 [facility] TYPE: Emergency COMPLAINT: - CATHETER PROBLEM DIAGNOSES: - Gastro-esophageal reflux disease without esophagitis - Encounter for fitting and adjustment of urinary device - Other extract puller (current) drug therapy - Encounter for fitting and adjustment of urinary device 08/07/2019 16:35 [facility] TYPE: Emergency COMPLAINT: - CATHETER ISSUE DIAGNOSES: - Leakage of indwelling urethral catheter, initial encounter - Other snf (current) drug therapy - Gastro-esophageal reflux disease without esophagitis INPATIENT VISIT TRACKING (12 MO.) No inpatient visits to display in this time frame [email or web address]
== END 2020-07-16 13:40 | disposition home or self-care (01) ==
LOC: ED 11:04
DX: N95.0 Postmenopausal bleeding (principal)
CPT/HCPCS: 36415; 80048; 85025; 99283

== ENCOUNTER 2020-07-20 09:39 | Inpatient (IN) | payer MEDICARE, OTHER ==
[~2020-07-20] VITALS: Ht 157.5 cm; Wt 102.4 kg
--- OUTSIDE RECORDS SUMMARY | ~2020-07-20 | XMS | Clinical Summary ---
Demographics + + + | Address | [address] | | | [place] [address] | + + + | Home Phone | | + + + | Preferred Language | Unknown | + + + | Marital Status | Unknown | + + + | Buddhist Affiliation | Unknown | + + + | Race | Unknown | + + + | Ethnic Group | Unknown | + + + Author + + + | Author | [facility] | | | and [place] | + + + | Organization | [facility] | | | and [place] | + + + | Address | Unknown | + + + | Phone | Unavailable | + + + Support + + +---------+ + | Name | Relationship | Address | Phone | + + +---------+ + | Lyla Macks | ECON | Unknown | | + + +---------+ + Care Team Providers + +------+ + | Care Learning Center Coordinator Name | Role | Phone | + +------+ + PCP | Unavailable | + +------+ + Allergies Not on File Medications Not on file Active Problems Not on file Social History + +-------+ +--------+------+ | Tobacco Use | Types | Packs/Day | Years | Date | | | | | Used | | + +-------+ +--------+------+ | Never Assessed | | | | | + +-------+ +--------+------+ + + + | Sex Assigned at | Date Recorded | | | | + + + | Not on file | | + + + Last Filed Vital Signs Not on file Plan of Treatment + + +-------+ + | Health Maintenance | Due Date | Last | Comments | | | | Done | | + + +-------+ + | Vaccine: | | | | | Dtap/Tdap/Td (1 - | 3 | | | | Tdap) | | | | + + +-------+ + | Vaccine: Zoster (1 | | | | | of 2) | 4 | | | + + +-------+ + | Breast Cancer | | | | | Screening | 9 | | | + + +-------+ + | Vaccine: | | | | | Pneumococcal 65+ (1 | 9 | | | | of 1 - PPSV23) | | | | + + +-------+ + | Vaccine: Influenza | | | | | (#1) | 0 | | | + + +-------+ + Results Not on filefrom Last 3 Months"
--- OUTSIDE RECORDS SUMMARY | ~2020-07-20 | XMS | Encounter Summary ---
Demographics + + + | Address | [address] | | | [place] [address] | + + + | Home Phone | | + + + | Preferred Language | Unknown | + + + | Marital Status | Unknown | + + + | Restorationist Affiliation | Unknown | + + + | Race | Unknown | + + + | Ethnic Group | Unknown | + + + Author + + + | Author | [facility] | | | and [place] | + + + | Organization | [facility] | | | and [place] [...] Team Providers + +------+ + | Care Tannery Gummer Name | Role | Phone | + +------+ + PCP | Unavailable | + +------+ + Encounter Details +--------+ + + + + | Date | Type | Department | Care Team | Description | +--------+ + + + + | 10/30/ | Hospital | [facility] | | | | 1996 | Encounter | MED CTR GENERIC OP | | | | | | CONV DEPT [address] | | | | | | [place], | | | | | | [place] [address] | | | | | | [phone] | | | +--------+ + + + + Social History + +-------+ +--------+------+ | Tobacco [...] on file | | + + + documented as of this encounter Plan of Treatment Not on filedocumented as of this encounter Visit Diagnoses Not on filedocumented in this encounter"
--- OUTSIDE RECORDS SUMMARY | ~2020-07-20 | XMS | Clinical Summary ---
Demographics + + + | Address | [address] | | | [place] [address] | + + + | Home Phone | | + + + | Preferred Language | Unknown | + + + | Marital Status | Unknown | + + + | Episcopalian Affiliation | Unknown | + + + | Race | Unknown | + + + | Ethnic Group | Unknown | + + + Author + + + | Author | [facility] | | | and [place] | + + + | Organization | [facility] | | | and [place] [...] Team Providers + +------+ + | Care Fountain Dispenser Name | Role | Phone | + [...]
--- OUTSIDE RECORDS SUMMARY | ~2020-07-20 | XMS | Encounter Summary ---
Demographics + + + | Address | [address] | | | [place] [address] | + + + | Home Phone | | + + + | Preferred Language | Unknown | + + + | Marital Status | Unknown | + + + | Religion Affiliation | Unknown | + + + | Race | Unknown | + + + | Ethnic Group | Unknown | + + + Author + + + | Author | [facility] | | | and [place] | + + + | Organization | [facility] | | | and [place] [...] Team Providers + +------+ + | Care Motors And Generators Inspector Name | Role | Phone | + +------+ + PCP | Unavailable | + +------+ + Encounter Details +--------+ + + + + | Date | Type | Department | Care Team | Description | +--------+ + + + + | 10/30/ | Hospital | [facility] | | | | 1995 | Encounter | [facility] | | | | | | CONV DEPT [address] | | | | | | [place], | | | | | | [place] [address] | | | | | | [phone] | | | +--------+ + + + [...]
--- OUTSIDE RECORDS SUMMARY | 2020-07-20 09:42 | XMS ---
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 Care History Medical/Surgical 10/26/2019 [facility] - CATH CHANGE APT -SCHEDULED WITH DR RON-UROLOGIST- 10/27/19. 10/12/2019 [facility] Follow up on 10/15/[address] Ron 10/01/2019 [facility] Patient has prior scheduled appt. with on 10/15/2019. E.DPetra VISIT COUNT (12 MO.) 9 [facility]. TOTAL 9 NOTE: Visits indicate total known visits. 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, implants - Gastro-esophageal reflux disease without esophagitis 10/29/2019 17:27 [facility] TYPE: Emergency COMPLAINT: - CATHETER PROBLEM DIAGNOSES: - Other long-term (current) drug therapy - Gastro-esophageal reflux disease without esophagitis - Encounter for fitting and adjustment of urinary device 10/24/2019 03:09 [facility] TYPE: Emergency COMPLAINT: - CATHETER PROBLEM DIAGNOSES: - Encounter for fitting and adjustment of urinary device - Gastro-esophageal reflux disease without esophagitis - Other long-term (current) drug therapy 10/10/2019 19:04 [facility] TYPE: Emergency COMPLAINT: - CATHETER PROBLEM DIAGNOSES: - Leakage of other urinary catheter, initial encounter - Leakage of other urinary catheter, initial encounter - Other termite treater helper (current) drug therapy - Gastro-esophageal reflux disease without esophagitis - Urinary tract infection, site not specified - Urinary tract infection, site not specified 09/29/2019 17:41 [facility] TYPE: Emergency COMPLAINT: - CATHETER PROBLEM DIAGNOSES: - Gastro-esophageal reflux disease without esophagitis - Encounter for fitting and adjustment of urinary device - Other termite treater helper (current) drug therapy - Encounter for fitting and adjustment of urinary device 08/07/2019 16:35 [facility] TYPE: Emergency COMPLAINT: - CATHETER ISSUE DIAGNOSES: - Leakage of indwelling urethral catheter, initial encounter - Other long-term (current) drug therapy - Gastro-esophageal reflux disease without esophagitis INPATIENT VISIT TRACKING (12 MO.) No inpatient visits to display in this time frame [id number]
[2020-07-20] MEDS ORDERED: NYSTATIN15 GM TOP (14:51)
[2020-07-20] MEDS ORDERED: METAMUCIL FIBE3.4 GM (14:57)
--- NOTE | 2020-07-21 22:55 | PATH ---
[facility] [address], [place] [address] Signed ORDERING PHYSICIAN: Larry Chiang MD PATIENT NAME: HILARY EDWARDS GENDER: F : 1945 Prior History: No cases found. SPECIMEN(S): MOLECULAR PATHOLOGY RESULTS: SARS-CoV-2 Not Detected ADDITIONAL NOTES.: The Sebring Fusion SARS-CoV-2 Assay is a multiplex real-time PCR (RT-PCR) in vitro diagnostic test intended for the qualitative detection of RNA from SARS-CoV-2 from individuals who meet COVID-19 clinical and/or epidemiological criteria. In general, SARS-CoV-2 RNA can be detected during the acute phase of infection. Positive results indicate the presence of SARS-CoV-2 RNA. Clinical correlation with patient history and other diagnostic information is necessary to determine patient infection status. Positive results do not rule out bacterial infection or co-infection with other viruses. Negative results do not preclude SARS-CoV-2 infection and should not be used as the sole basis for patient management decisions. Negative results must be combined with other clinical observations, patient history, and epidemiological information. The Sebring Fusion SARS-CoV-2 Assay is not yet approved or cleared by the [place] FDA. When there are no FDA-approved or cleared tests available, and other criteria are met, FDA can make tests available under an emergency access mechanism called an Emergency Use Authorization (EUA). The EUA for this test is supported by the [employer] of Health and Human Service's (HHS's) declaration that circumstances exist to justify the emergency use of in vitro diagnostics for the detection and/or diagnosis of the virus that causes COVID-19. This EUA will remain in effect for the duration of the COVID-19 declaration justifying emergency of IVDs, unless it is terminated or revoked by FDA, after which the test may no longer be used. The Sebring Fusion SARS-CoV-2 Assay is for use only under EUA PATIENT NAME: HILARY EDWARDS PATHOLOGY DATE OF : 43 REPORT #: [id number] PHYSICIAN: BRENDA SILVERIO PCP: GUY MCINTOSH DO REPORT IS CONFIDENTIAL AND NOT TO BE RELEASED WITHOUT AUTHORIZATION [facility] [address] [place] [id number] Signed in laboratories certified under the Clinical Laboratory Improvement Amendments of 1988 (CLIA) to perform high complexity tests. [facility] is certified under CLIA to perform high complexity clinical laboratory testing. PERFORMING LABORATORY.: Molecular testing was performed by [facility] [address] [place], [place] [address] [address] (Head Waiter: Nacho Hwang D.O.; CLIA#: [id number]) Diagnostician: System Interface Pathologist Electronically Signed 07/21/2020 Copies: ~ PATIENT NAME: HILARY EDWARDS PATHOLOGY DATE OF : 43 REPORT #: [id number] PHYSICIAN: BRENDA SILVERIO PCP: GUY MCINTOSH DO REPORT IS CONFIDENTIAL AND NOT TO BE RELEASED WITHOUT AUTHORIZATION
[2020-07-24] MEDS ORDERED: CEPHALEXIN500 MG PO (09:39)
[2020-07-24] MEDS ORDERED: METOPROLOL SUCC25 MG PO (09:46)
== END 2020-07-24 11:09 | disposition home or self-care (01) | DRG 698 ==
LOC: ED 09:39 → CCU 12:31 → MS 07-22 11:45
PROVIDERS: ADMIT Internal Medicine; ATTEND Internal Medicine
DX: T83.518A Infection and inflammatory reaction due to other urinary catheter, initial encounter (principal); A41.59 Other Gram-negative sepsis; G93.41 Metabolic encephalopathy; J15.9 Unspecified bacterial pneumonia; N30.00 Acute cystitis without hematuria; Z20.828 Contact with and (suspected) exposure to other viral communicable diseases; F39 Unspecified mood [affective] disorder; R62.50 Unspecified lack of expected normal physiological development in childhood; G89.4 Chronic pain syndrome; K21.9 Gastro-esophageal reflux disease without esophagitis; R33.9 Retention of urine, unspecified; N95.0 Postmenopausal bleeding; Z79.899 Other long term (current) drug therapy
CPT/HCPCS: 51702; 71045; 80053; 81001; 83605; 83735; 85025; 87077; 87088; 87186; 90662; 93306; 99285-25; C9113; C9803; J0456; J0696; J1650; J3475; J3480; J7030; J7060; J7121

== ENCOUNTER 2020-11-09 10:44 | Inpatient (IN) | payer MEDICARE, OTHER ==
[~2020-11-09] VITALS: Ht 157.5 cm; Wt 98.7 kg
[~2020-11-09 10:44] MED LIST changes: +CEPHALEXIN500 MG PO; +METAMUCIL FIBE3.4 GM; +METOPROLOL SUCC25 MG PO; +NYSTATIN15 GM TOP
--- OUTSIDE RECORDS SUMMARY | 2020-11-09 10:48 | XMS ---
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 Care History Medical/Surgical 10/26/2019 [facility] - CATH CHANGE APT -SCHEDULED WITH DR RON-UROLOGIST- 10/27/19. 10/12/2019 [facility] Follow up on 10/15/[address] Ron 10/01/2019 [facility] Patient has prior scheduled appt. with on 10/15/2019. E.D. VISIT COUNT ([address] [facility]. TOTAL 5 NOTE: Visits indicate total known visits. ED/UCC VISIT TRACKING (12 MO.) 11/09/2020 10:45 [facility] TYPE: Emergency COMPLAINT: - ALTERED MENTAL STATUS 07/20/2020 09:39 [facility] TYPE: Emergency COMPLAINT: - LATHARGIC 07/16/2020 11:04 [facility] TYPE: Emergency COMPLAINT: - VAGINAL BLEEDING DIAGNOSES: - Abnormal uterine and vaginal bleeding, unspecified - Postmenopausal bleeding 06/17/2020 11:58 [facility] TYPE: Emergency COMPLAINT: - POSSIBLE DEHYDRATION DIAGNOSES: - Other halfway (current) drug therapy - Headache - Gastro-esophageal reflux disease without esophagitis 06/12/2020 14:43 [facility] TYPE: Emergency COMPLAINT: - CATHETER PROBLEM DIAGNOSES: - Hemorrhage due to genitourinary prosthetic devices, implants and grafts, initial encounter - Other terminal gauger supervisor (current) drug therapy - Hemorrhage due to genitourinary prosthetic devices, implants and grafts, initial encounter - Gastro-esophageal reflux disease without esophagitis INPATIENT VISIT TRACKING (12 MO.) 07/20/2020 12:31 [facility] TYPE: Medical Surgical COMPLAINT: - SEPSIS - PRESUMPTIVE COVID DIAGNOSES: - Unspecified lack of expected normal physiological development in childhood - Unspecified bacterial pneumonia - Acute cystitis without hematuria - Other Gram-negative sepsis - Postmenopausal bleeding - Unspecified mood [affective] disorder - Encounter for immunization - Unspecified bacterial pneumonia - Retention of urine, unspecified - Contact with and (suspected) exposure to other viral communicable diseases - Infection and inflammatory reaction due to other urinary catheter, initial encounter - Postmenopausal bleeding - Metabolic encephalopathy - Chronic pain syndrome - Other Gram-negative sepsis - Infection and inflammatory reaction due to other urinary catheter, initial encounter - Other halfway (current) drug therapy - Retention of urine, unspecified - Gastro-esophageal reflux disease without esophagitis - Sepsis, unspecified organism - Unspecified lack of expected normal physiological development in childhood - Chronic pain syndrome - Gastro-esophageal reflux disease without esophagitis - Acute cystitis without hematuria - Metabolic encephalopathy - Other terminal gauger supervisor (current) drug therapy - Unspecified mood [affective] disorder - Contact with and (suspected) exposure to other viral communicable diseases [email or web address]
--- NOTE | 2020-11-09 14:05 | NUR ---
Notified by Dr. Beaulieu, Kylah will be admitted to CCU. He is needing her POLST form and confirmation from her Health Soa Architect of her resusitation status. He was notified by the CG with her in the ER, pt is a DNR. Until there is a copy of the POLST and confirmation from the Health Fire Apparatus Engineer, this cannot be completed.
--- NOTE | 2020-11-09 14:10 | NUR ---
Called and spoke with Shannan Oneill, [facility] manager. She states there is a current POLST form completed by Dr. Cadet at her office. She is currently in a class, and unable to provide POLST or Health Chef French form. I called and spoke with Dr. Cadet's office and they were able to provide the POLST datd 07/29/2020 and it lists Myranda Granger as the Health Chef French. There is not a phone number listed.
--- NOTE | 2020-11-09 14:31 | NUR ---
Sent an email to Shannan with update, I was able to obtain the POLST, but I do not have Myranda's number. Requested she send katina.
--- NOTE | 2020-11-09 14:55 | NUR ---
Called and spoke with [facility] where Kylah resides. They were able to provide Myranda Granger, Health Screw Eye Assembler's phone number. I called and confirmed with Myranda, pt remains and DNR/DNI and she states this is accurate.
--- NOTE | 2020-11-09 15:00 | NUR ---
PATIENT ARRIVED TO ROOM 129 WITH CAREGIVER ARIA AT THE BEDSIDE. PATIENT IS OBTUNDED ON ARRIVAL. MOVED PATIENT VIA RYLEY LIFT. PATIENT IS A RYLEY LIFT BASELINE. WILL GET ADMISSION DATA FROM PATIENTS CAREGIVER ARIA.
--- NOTE | 2020-11-09 15:10 | NUR ---
Dr. Beaulieu updated pt is a DNR/DNI. Orders entered in [employer]. Email sent to Shannan Lakhani from [employer] requesting they fax the updated Health Rib Builder paper work for Myranda Granger as this is stated on the POLST.
--- NOTE | 2020-11-09 15:40 | NUR ---
PT ADMITTED TO CCU ROOM 128 FOR GI BLEED, HAD CALLED EMS AT [facility] AFTER HAVING BLOODY STOOL WITH SYNCOLPAL EPISODE. ARRIVES AWAKE, ALERT AND ORIENTED. PT SAT UP ONTO EDGE OF [facility] FOR SEVERAL MINUTES, STATING SHE FELT SOMEWHAT DIZZY AND LIGHTHEADED WITH SITTING UP. 2 PERSON ASSIST TO PIVOT PT ONTO BSC FOR BOWEL MOVEMENT. ON SITTING ON COMMODE, PTS HEARTRATE WENT FROM 90 TO 112, AND AFTER SEVERAL PTS PT BEGAN STATING SHE FELT NAUSEATED AND MORE LIGHTHEADED. PT THEN TRANSFERRED WITH 2PERSON ASSIST INTO BED. SHE HAD A LARGE DARK RED, CLOT LIKE STOOL COVERING THE BOTTOWM OF THE COMMODE BUCKET. ONCE IN BED HEARTRATE WENT DOWN INTO 90'S. DR MYRICK CALLED FOR NAUSEA MEDICATION AND UPDATED ON PT STATUS.
[2020-11-09] MEDS ORDERED: MEGESTROL ACETA40 MG PO (15:48)
--- NOTE | 2020-11-09 15:49 | NUR ---
Medications reconciled with caregiver, Ms Callaway
--- NOTE | 2020-11-09 16:00 | NUR ---
THIS RN HAS BEEN IN WITH PATIENT FOR PAST HOUR ADMITTING PATIENT. PATIENTS ASSESSMENT COMPLETED. BREATH SOUNDS CLEAR. PATIENT IS ON RA AND IS NOTED TO BE SNORING. SPO2 95% RA. PATIENT NOTED TO HAVE A FEVER OF 101.5. CALLED MD ORTEGA TO UPDATE THAT PATIENTS LACTIC WAS 3.3 ON FEED MIXER IN THE ED AND HR 120'S ON ARRIVAL AND A FEVER. SEE NEW ORDERS FOR A FLUID BOLUS. WILL GIVE A TYLENOL SUPPOSITORY FOR FEVER. PATIENT HAD A BM WHEN WE MOVED PATIENT. CLEANED PATIENT AND DAMON CATH CARE PROVIDED. PATIENT DID AWAKEN WITH TRANSFERING AND HAD HER EYES OPEN. PATIENT IS NONVERBAL BASELINE PER CAREGIVER ARIA. PATIENT WILL MOAN AND SMILE AT STAFF AT BASELINE. PATIENT IMMEDIATELY BACK TO SLEEP ONCE PATIENT WAS REPOSITIONED. BOWEL TONES ACTIVE. PER DR RON NOTES PATIENTS CATHETER CHANGED IN THE CLINIC PRIOR TO HER COMING TO THE ED. PATIENT HAS A SKIN SORE ON HER LEFT BUTTOCK. PICTURE IN BOOK AND ALLEVYN PLACED. SITE IS BLANCHABLE. SCRATCHES NOTED ON LEFT GROIN WELL. NO OTHER SKIN ISSUES NOTED AT THIS TIME. WILL TURN PATIENT Q2 HOURS TO PREVENT SKIN BREAK DOWN. PITO PATIENTS CAREGIVERS NUMBER PLACED ON THE BOARD PER HER CALL AT ANY TIME IF ANY NEEDS ARISE. PATIENT SWHEELCHAIR AT THE BEDSIDE. WILL ALLOW PATIENT TO REST. WILL CONTINUE TO CLOSELY MONITOR.
--- NOTE | 2020-11-09 17:30 | NUR ---
GAVE PATIENT TYLENOL SUPPOSITORY. PATIENT HAD AN INCONT BM AT THAT TIME. DEPENDS CHANGED AND PATIENT CLEANED. ARIA PATIENTS CAREGIVER IS GOING HOME FOR THE NIGHT. PER ARIA ANOTHER CAREGIVER MAY BE IN TO SIT WITH PATIENT THIS EVENING. TAN PATIENTS MAIN CAREGIVER MAY CALL FOR UPDATES. NO OTHER NEEDS AT THIS TIME. WILL CONTINUE TO CLOSELY MONITOR.
--- NOTE | 2020-11-09 20:00 | NUR ---
PT DID TURN HEAD AND MOAN WHEN FACE WASHED AND CATH CARE DONE. SMEAR OF BLOOD NOTED GISELA AREA. REPOSITIONED. URINE OUTPUT GOOD.
--- NOTE | 2020-11-09 22:10 | NUR ---
REPOSITIONED. MICHAEL VAUGHAN.
--- NOTE | 2020-11-10 00:05 | NUR ---
REPOSITIONED. INC SMALL AMT STOOL AND SMALL AMT BLEEDING IN GISELA AREA NOTED. EXTREMITIES ARE TENSE AND PT RESISTS MOVEMENT. IS MOVING MORE SPONTANEOUSLY AND VOCALIZING MORE. DID OPEN EYES. T 100 A.
--- NOTE | 2020-11-10 01:56 | NUR ---
T 100.3 AXILLARY . GIVNE 650MG TYLENOL BY SUPP. PT REPOSITIONED. SHE STARTLED WITH TURNING. HANDS AND ARMS CONT TO BE MOTTLED AND SL COOL, NO MOTTLING OF LEGS NOTED. L SIDE OF FACE IS SL SWOLLEN AND REDDENED.
--- NOTE | 2020-11-10 03:07 | NUR ---
T 99.3 AX. RESTAING HR HAS DEC TO 100-110 SINCE TYLENOL GIVEN AND MOTTLING IN HANDS/ AND ARMS IS GONE.
--- NOTE | 2020-11-10 04:08 | NUR ---
REPOSITIONED. PT OPENED EYES WITH THIS AND MADE SOUNDS.
--- NOTE | 2020-11-10 06:14 | NUR ---
REPOSITIONED PT, IS MORE AWAKE AND SQUEEEZED NURSES HAND. URINE OUT PUT GOOD. HR IS TRENDING UP TO 120'S AND HANDS ARE STARTING TO BECOME MOTTLED. T 99.5 AX.
--- NOTE | 2020-11-10 07:30 | NUR ---
PATIENT SHIFT REPORT RECIEVED FROM GUIDANCE SERVICES COORDINATOR RN. PATIENT RESTING IN BED ON HER RIGHT SIDE AT THIS TIME WITH PILLOW SUPPORT. WILL CONTINUE TO CLOSELY MONITOR.
--- NOTE | 2020-11-10 08:30 | NUR ---
THIS RN AND STAFF IN TO SEE PATIENT AND REPOSITION. PATIENT IS MORE RESPONSIVE TO STAFF THIS AM. PATIENT MOANS TO STAFF WITH MOVING AND ROLLING. PATIENT HAD A LOOSE BM. CHANGED PATIENTS ATTENDS AND GAVE TYLENOL SUPPOSITORY. PATIENT AWAKE AND OPENING EYES AND HELPS WITH TURNING. APPLIED BARRIER CREAM AND VIT A/D OINT TO PATIENTS BUTTOCKS SORE. NO CAREGIVERS AT THE BEDSIDE AT THIS TIME. WILL GET PATIENT A STUFFED ANIMAL FOR COMFORT. CARTOONS TURNED ON. PATIENT WATCHING TV., MEDICATIONS GIVEN. WILL CONTINUE TO CLOSELY MONITOR.
--- NOTE | 2020-11-10 09:30 | NUR ---
PATIENT ATTENDANT and RN changed pt. brief and linens. v/s and I&Os done and recorded. Moved pt. up in bed. Repositioned pt. no other needs at this time. deric light with in reach
--- NOTE | 2020-11-10 09:30 | NUR ---
[facility] PATIENTS MAIN CAREGIVER IS HERE AT THE BEDSIDE. UPDATED ON PLAN OF CARE. MD ORTEGA HAS NOT BEEN IN TO SEE PATIENT YET. ALL QUESTIONS ANSWERED WILL CALL WITH UPDATES.
--- NOTE | 2020-11-10 10:00 | NUR ---
ORAL MEDICATION GIVEN WITH SOME PUDDING. PATIENT TOELRATED WELL. PER [facility] CAREGIVER PATIENT IS ON A MINCED AND MOIST DIET. REPOSITIONED WITH PILLOW SUPPORT. WILL CONTINUE TO CLOSELY MONITOR. PATIENT WATCHIGN TV AT THIS TIME AND IN DIRECT VISULIZATION OF THE NURSES STATION.
--- NOTE | 2020-11-10 11:58 | NUR ---
PATIENT WILL BE TRANSFERED TO THE MEDICAL UNIT PER MD ORTEGA. CALLED [facility] AND UPDATED ON PATIENTS PLAN OF CARE AND PATIENT WILL TRANSFER TO ROOM 112. NO OTHER QUESTIONS. WILL CONTINUE TO CLOSELY MONITOR.
--- NOTE | 2020-11-10 12:20 | NUR ---
THIS RN TOOK PATIENT TO HER NEW ROOM. PITER RIGGINS AT THE BEDSIDE. ALL QUESTIONS ANSERED. NO OTHER NEEDS AT THIS TIME. WILL CONTINUE TO CLOSELY MONITOR.
--- NOTE | 2020-11-10 12:20 | NUR ---
PATIENT BROUGHT TO ROOM BY RAYMUNDO RIGGINS FROM CCU pt being transfered for continued cares as she continues to show improvements and return to [facility]. pt appears calm and makes slight undistressed moaning noises (baseline). pt able to eat some of her lunch order. pt seems unable to suck through a straw, but is able to swallow with little difficulty, only seems to pocket foods slightly. pt is due to have her caregivers for meals according to her facility business process representative, as relayed from report. pt is alert, orientation not able to access. cartoon show put on the TV and pt seems calm and content at this time. fresh water brought to the room. IVs assessed and functioning properly. pt appears to be in no pain. pt currently getting IV potassium as ordered and started in CCU. Raymundo reports that pt should be back to IV fluids once the potassium is complete. pt in bed, side rails up for safety, table and call light within reach, curtain open and pt visible. bed alarm on.
--- NOTE | 2020-11-10 15:24 | NUR ---
RECIEVED REPORT FROM VAISHNAVI DUMAS. PATIENT LYING IN BED. GROANS WITH CARES PROVIDED. TEMPERATURE RECHECKED AT 99.1 AXILLARY. ASSESSMENT COMPLETED. IV FLUIDS INITIATED ORDERED.
--- NOTE | 2020-11-10 15:30 | NUR ---
Pt with Charlotte leung, as pt is unable to answer questions and moans ly. Pt resides at [facility]. Per Charlotte, pt no longer walks and uses a wc at all times. She has a bedsore on her bottom. THis infor passed onto RN. Porter states pt is in need of a wc and and hospital bed. I will contact [facility] to check for DME. Pt will return to [facility] on discharge.
--- NOTE | 2020-11-10 15:54 | NUR ---
REPORT RECIEVED FROM VAISHNAVI DUMAS. PATIENT RESTING IN BED COMFORTABLY. CALL LIGHT WITHIN REACH. COMFORT ITEMS AT PATIENT SIDE. DAMON CATHETER PATENT. CALL LIGHT WITHIN REACH.
--- NOTE | 2020-11-10 15:56 | NUR ---
ASSESSMENT COMPLETED. PATIENT DROWSY BUT EASY TO AWAKEN. IV SITE IN LEFT AC INFILTRATED. LR RUNNING @75ML/HR IV SITE IN RIGHT FOREARM. PATIENT AF[place]BR[place], TEMP 99.1, TYLENOL PRN HELD. PATIENT DENIES FURTHER NEEDS AT THIS TIME.
--- NOTE | 2020-11-10 16:00 | NUR ---
Called [facility], pt wc was dispensed in 2018. UPdated staff are concerned it is very loose and will break. Kirt requested they bring the wc in and they can work on it. She states the hospital bed is there and ready to be delivered. They have called several times to deliver the bed, but have never received a call back. Charlotte updated.
--- NOTE | 2020-11-10 16:50 | NUR ---
PATIENT TURNED AND CHANGED. TEMPERTATURE INCREASED TO 100.2, TYLENOL SUPPOSITORY GIVEN. PATIENT LYING ON BACK AND SITTING UP IN PREPARATION FOR DINNER. CAREGIVER AT THE BEDSIDE. CALL LIGHT WITHIN REACH. DENIES OTHER NEEDS AT THIS TIME.
--- NOTE | 2020-11-10 17:55 | NUR ---
PATIENT IN BED, SUPINE WITH HEAD ELEVATED. ATE ROUGHLY 25% OF DINNER WITH TOTAL ASSISTANCE. CALL LIGHT WITHIN REACH. WILL CONTINUE TO MONITOR.
--- NOTE | 2020-11-10 18:11 | NUR ---
Assumed care of patient around 1500. Patient has been febrile off and on throughout the shift, has PRN Tylenol suppository for elevated temp, last one given 1649. Patient is a total feed, requiring assistance with meals. IV site in the left AC infiltrated and was discontinued. LR running @75ml/hr in IV site on left forearm.
--- NOTE | 2020-11-10 18:19 | NUR ---
Repositioned to right side. Temp decreasing. No changes noted. Call light in reach, bed rails up X2.
--- NOTE | 2020-11-10 19:05 | NUR ---
SHIFT REPORT RECEIVED FROM NELLY RIGGINS. PT RESTING IN BED. RR EVEN, UNLABORED. IV FLUIDS INFUSING PER ORDER. NO OTHER NEEDS AT THIS TIME. MARISOL PIEDRA. DOOR OPEN, CALL LIGHT IN REACH.
--- NOTE | 2020-11-10 21:20 | NUR ---
IN TO GET PT VITALS, CATH CARE DONE AND WATER OFFERED, WIPED PT FACE WITH DAMP WASHCLOTH, RN IN TO GIVE MEDS, RN IS AWARE OF PT TEMP, PT HAS BEEN TURNED TO OTHER SIDE, NO FURTHER NEEDS AT THIS TIME
--- NOTE | 2020-11-10 21:57 | NUR ---
ASSESSMENT COMPLETED. SCHEDULED MEDS PROVIDED IN PUDDING. PT ALERT. LUNGS CLEAR, HEART TONES REGULAR.ABD FIRM, NONTENDER, OBESE. BOWEL TONES ACTIVE. BLE HAVE 1+ EDEMA. RED BUT BLANCHABLE AREA ON BUTTOCKS, PT REPOSITIONED. DAMON WNL. IV WNL, CDI, FLUSHED WELL. HEEL PROTECTION ON. IV FLUIDS INFUSING PER ORDER. NO OTHER NEEDS AT THIS TIME. CALL LIGHT IN REACH, DOOR OPEN.
--- NOTE | 2020-11-10 22:36 | NUR ---
PT RESTING IN BED, EYES CLOSED. RR EVEN, UNLABORED. CALL LIGHT IN REACH.
--- NOTE | 2020-11-10 23:20 | NUR ---
IN TO CHECK ON PT, WITH RN TO TURN PT, CHECKED ON DAMON TUBING FOR FLOW, NO FURTHER NEEDS AT THIS TIME
--- NOTE | 2020-11-10 23:25 | NUR ---
PT IS MAONING FREQUENTLY AND HAS A TEMP OF 99.0F ORAL, PRN TYLENOL PROVIDED IN PUDDING. NO OTHER NEEDS AT THIS TIME. PT WILL NOT SUCK ON STRAW TO DRINK WATER. CALL LIGHT IN REACH, DOOR OPEN.
--- NOTE | 2020-11-11 01:32 | NUR ---
PT REPOSITIONED. NEW BAG OF IV FLUIDS PROVIDED. IV WNL. DAMON WNL. NO OTHER NEEDS AT THIS TIME. CALL LIGHT IN REACH, DOOR OPEN.
--- NOTE | 2020-11-11 03:45 | NUR ---
PT REPOSITIONED. IV WNL. DAMON WNL. NO OTHER NEEDS AT THIS TIME. CALL LIGHT IN REACH, DOOR OPEN.
--- NOTE | 2020-11-11 05:45 | NUR ---
PT BRIEFS, BEDDING AND GOWN CHANGED. PERICARE PROVIDED. RIGHT BUTTOCKS HAS AN AREA OF BLANCHABLE REDNESS. LEFT BUTTOCKS HAS AN AREA OF BLANCHABLE REDNESS THAT APPEARS TO BE SHEARING, ALLYVYN IN PLACE. WOUND CONSULT SUBMITTED. MARSHALL MORRIS IN ROOM TO COMPLETE ORAL CARE AND MORNING ADLs.
--- NOTE | 2020-11-11 06:00 | NUR ---
IN TO GET PT VITALS, RN IN TO ASST WITH TURNING AND PLACING CLEAN BRIEF, CATH CATH DONE, RN AWARE OF HIGHER TEMP, THIS DISPENSING OPTICIAN PERFORMING ORAL CARE AND WIPING FACE WITH WARM WASHCLOTH, OFFERED PT SIPS OF WATER, PT UNABLE TO TAKE SIPS, CHAPSTICK APPLIED, NO FURTHER NEEDS AT THIS TIME
--- NOTE | 2020-11-11 06:36 | NUR ---
PT HAS BEEN REPOSITIONED EVERY 2 HOURS TONIGHT, TOLERATED WELL. DAMON WNL. IV WNL. UOS. VSS WITH ELEVATED TEMPS MANAGED WITH PRN TYLENOL. PT HAS NOT TAKEN ANY LIQUIDS BY MOUTH, SHE WILL TAKE JELLO, APPLESAUCE AND PUDDING BY MOUTH. HER PILLS WERE NOT TOLERATED WELL A WHOLE, CRUSHED MEDS WERE TOLERATED WELL IN PUDDING. PT HAS SCANT AMOUNTS OF VAGINAL BLEEDING. ABD HAS BEEN FIRM, SHE IS PASSING FLATUS. HER LEFT BUTTOCKS IS RED WITH A SHEARING INJURY, WOUND CONSULT PLACED. RIGHT BUTTOCKS HAS A RED BLANCHABLE AREA. PT HAS A RED AREA AND ABRASION ON PUBIC MOUND.
--- NOTE | 2020-11-11 07:00 | NUR ---
Report from Deonte Snow RN. Patient resting in bed with eyes closed. Respirations even and unlabored. Allowed to rest, call light in reach, bed rails up X2.
--- NOTE | 2020-11-11 07:33 | NUR ---
REPORT RECIEVED FROM VAISHNAVI GAXIOLA. PATIENT IN BED RESTING. AWAKE, DISORIENTED. DAMON INTACT AND DRAINING. CALL LIGHT WTIHIN REACH. BED RAILS UP X2. WILL CONTINUE TO MONITOR.
--- NOTE | 2020-11-11 08:20 | NUR ---
Assessment completed. AM medications given along with PO tylenol, crushed and in applesauce. Takes with prompting. Repositioned to back.
--- NOTE | 2020-11-11 09:05 | NUR ---
ASSESSMENT COMPLETED. PATIENT SIDE-LYING RIGHT, REPOSITIONED ONTO BACK IN PREPARATION FOR BREAKFAST. MORNING MEDICATIONS ADMINISTERED. TEMP WAS 100.9 THIS MORNING, PRN TYLENOL GIVEN PO. DAMON PATENT AND DRAINING EFFICIENTLY. PATIENT REQUIRES TOTAL ASSISTANCE WITH FEEDING. CALL LIGHT WITHIN REACH. BED RAILS UP X2. WILL CONTINUE TO MONITOR.
--- NOTE | 2020-11-11 09:18 | NUR ---
2PA WITH STUDENT VICENTE, MOVED PATIENT TO LEFT SIDE, PILLOW UNDER FOR SUPPORT. PATIENT TOOK A SIP OF WATER, FACE AND HANDS WASHED, EYES WERE CRUSTED OVER, CLEANED OUT. DAMON EMPTIED. VITALS AND I&OS CHARTED, CALL LIGHT IN REACH
--- NOTE | 2020-11-11 10:04 | NUR ---
TEMPERATURE REASSESSED AFTER PO TYLENOL. TEMP DECREASED TO 99.0. PATIENT SLEEPING. CALL LIGHT WITHIN REACH, BED RAILS UP X2. WILL CONTINUE TO MONITOR.
--- NOTE | 2020-11-11 10:55 | NUR ---
PATIENT CONTINUES RESTING QUIETLY. TEMPERATURE REASSESSED AND IS CURRENTLY 98.7. ORAL SWABBING PROVIDED. COMFORT ITEMS WITHIN REACH. COMFORT MUSIC IN USE. CALL LIGHT WTIHIN REACH. BED RAILS UP X2. WILL CONTINUE TO MONITOR.
--- NOTE | 2020-11-11 11:25 | NUR ---
PT IS ASLEEP, AND IS UNABLE TO VISIT OR ANSWER QUESTIONS. WILL FOLLOW NEEDED
--- NOTE | 2020-11-11 11:26 | NUR ---
REPOSITIONED ONTO BACK IN PREPARATION FOR LUNCH. ORAL SWABBING PROVIDED. COMFORT MUSIC CONTINUED. TEMP 98.7. CALL LIGHT WITHIN REACH. BED RAILS UP X2. WILL CONTINUE TO MONITOR.
--- NOTE | 2020-11-11 11:55 | NUR ---
Lying in bed, eyes closed, respirations even and unlabored. Allowed to rest. Temperatures returning to normal. Call light in reach, bed rails up X2.
--- NOTE | 2020-11-11 13:53 | NUR ---
PATIENT AWAKE IN BED, 2PA TURNED PATIENT TO RIGHT. VITAL SNAD I&OS CHARTED. DAMON EMPTIED. PATIENT TAKING SIPS OF WATER WITH SERVERAL CUES. CALLLIGHT AND BABY DOLLS IN REACH.
--- NOTE | 2020-11-11 14:03 | NUR ---
ASSESSMENT COMPLETED. PATIENT REPOSITIONED TO SIDE LYING LEFT. CAREGIVER IN ROOM DURING LUNCH AND ASSISTED WITH FEEDING. ENCOURAGED ORAL FLUIDS AND WAS SUCCESSFUL WITH WATER THROUGH STRAW. DAMON PATENT AND DRAINING. COMFORT ITEMS AND MUSIC IN USE AND WITHIN REACH. CALL LIGHT WITHIN REACH. TEMPERATURE 98.6. WILL CONTINUE TO MONITOR.
--- NOTE | 2020-11-11 14:57 | NUR ---
LYING IN BED WITH EYES CLOSE. OPENS EYES TO VOICE. ASSESSMENT COMPLETED. NO SIGNS OF PAIN OR DISCOMFORT AT THIS TIME. ALLOWED TO REST. CALL LIGHT IN REACH, BED RAILS UP.
--- NOTE | 2020-11-11 15:12 | NUR ---
NO CHANGES IN DISCHARGE PLAN AT THIS TIME. NOT READY FOR DISCHARGE AT THIS TIME.
--- NOTE | 2020-11-11 17:01 | NUR ---
PATIENT REPOSITIONED FOR DINNER. TEMP REASSESSED AND IS 99.1. DAMON PATENT AND INTACT. CAREGIVER AT THE BEDSIDE. CALL LIGHT WITHIN REACH. PERSONAL COMORT ITEMS WITHIN REACH. WILL CONTINUE TO MONITOR.
--- NOTE | 2020-11-11 17:15 | NUR ---
PATIENT AWAKE IN BED, CARGIVEER IN ROOM. RN STUDENT AND THIS TRAILER PARK MANAGER TURNED PATIENT INTO SUPINE POSITION FOR DINNER. VITALS AND I&OS CHARTED, DAMON EMPTIED. CALL LIGHT AND DOLLS WITHIN REACH
--- NOTE | 2020-11-11 18:22 | NUR ---
Patient has been in bed for the shift. Caregiver at the bedside periodically througout the day. Patient is a total feed and requires assistance with all meals. Q2 turns. Allevyn on left buttock for small wound. Vaginal bleeding has been scant. Jerez has remained patent and intact. Fever increased this morning and PO tylenol was given, temp has remained between 98-99 since.
--- NOTE | 2020-11-11 19:00 | NUR ---
REPORT RECEIVED FROM NELLY RIGGINS AND VICENTE WATSON. PT RESTING IN BED, EYES CLOSED, BREATHING EVENLY. IVF INFUSING WNL. WILL CONTINUE PLAN OF CARE
--- NOTE | 2020-11-11 20:30 | NUR ---
IN TO GET PT VITALS, DAMON EMPTIED, CATH CARE DONE, CHAPSTICK APPLIED, WASHED PT FACE, CAREGIVER NOTED PUFFY LF EYE, INFORMING RN TO CHECK, NO FURTHER NEEDS AT THIS TIME, RN IN TO GIVE MEDS SHORTLY,
--- NOTE | 2020-11-11 21:00 | NUR ---
SALES AND MANAGEMENT TRAINEE ROUNDING NOTE. PT RESTINGIN BED WITH CG PRESENT AT BEDSIDE. SCHEDULED MEDS ADMINISTERED IN APPLE SAUCE. RECORD RETRIEVAL SPECIALIST ASSISTS PT TO FINISH CUP OF APPLE SAUCE, PT TOLERATED WELL. CG STATES CONCERN ABOUT DISCHARGE FROM L EYE, STATES THAT IT ALSO SEEMS A BIT MORE SWOLLEN THAN EARLIER. RECORD RETRIEVAL SPECIALIST CLEANED PT'S EYE WITH A WARM WASHCLOTH. SMALL AMOUNT OF YELLOWISH GREEN DRAINAGE NOTED. CG PUT ON A VIDEO FOR PT TO FALL ASLEEP AND THEN LEFT FOR THE EVENING. STATES THAT SHE WILL COME BACK TOMORROW. CALL LIGHT IN PT'S REACH. WHITEBOARD UDPATED.
--- NOTE | 2020-11-11 22:30 | NUR ---
This RN and PAYABLE PROCESSOR in room to reposition patient in bed and assess. Pt resting in bed with eyes closed, calm and cooperative with care. Repositioned to R side lying with pillows. IVF infusing WNL. Will continue with plan of care.
--- NOTE | 2020-11-12 00:49 | NUR ---
IN WITH SECOND INVESTMENT COUNSELOR TO TURN PT, NO FURTHER NEEDS
--- NOTE | 2020-11-12 02:45 | NUR ---
NEW BAG IVF INFUSING, PLUSH FINISHER IN ROOM TO ASSIST WITH REPOSITIONING. PATIENT HAD BM X1, MUCUS NOTED. SCANT AMOUNT VAGINAL BLEEDING NOTED. PT TOLERATED MOVEMENT WELL. WILL CONT TO MONITOR.
--- NOTE | 2020-11-12 02:50 | NUR ---
IN TO ASSIST RN WITH TURNING PT, CHANGED PT ATTENDS AT THIS TIME WELL, NO FURTHER NEEDS AT THIS TIME
--- NOTE | 2020-11-12 05:30 | NUR ---
Vitals and I/O's completed. Pt has temp of 100.0, PRN tylenol administered with applesauce. Pt repositioned in bed with pillows. Calm and cooperative with cares, moves easily. Curtain open, bed in lowest position.
--- NOTE | 2020-11-12 06:25 | NUR ---
Pt rested comfortably this shift, Q2 turns, tolerated well. BM x1, mucus noted, chronic scant vaginal bleeding noted as well. Febrile at 100.0, PRN tylenol administered. Able to swallow crushed medications with applesauce. IVF infusing WNL. Jerez patent, cares complete.
--- NOTE | 2020-11-12 07:36 | NUR ---
PT RESTING SOUNDLY AT TIME OF BEDSIDE REPORT, LEFT UNDISTURBED. PT APPEARS COMFORTABLE AND RELAXED.
--- NOTE | 2020-11-12 11:22 | NUR ---
PT TOLERATES BREAKFAST WELL, EATS MOST OF IT WITH STAFF ASSIST. ORAL CARE PROVIDED. TEST LEAD APPLICATION TESTING PRESENT ASSISTS WITH BEDBATH AND CATH CARE.
--- NOTE | 2020-11-12 12:53 | NUR ---
DR ORTEGA IN TO SEE PT SHE IS QUIET ALERT, DOES NOT MAKE EYE CONTACT OR ANSWER QUESTIONS
--- NOTE | 2020-11-12 15:18 | NUR ---
PT REPOSITIONED AND UNDERGARMENT CHECKED FOR CLEANLINESS. PT APPEARS COMFORTABLE SIDE LAYING FOR PRESSURE RELIEF OF HER BOTTOM. RN PLASTICS RETURNS SITTING AT BEDSIDE NOW READING TO PT.
--- NOTE | 2020-11-12 16:12 | NUR ---
PATIENT'S CAREGIVER HELPED ME DO A COMPLETE BED BATH. ALSO GISELA CARE AND CATH. CHERI ARAYA. REPOSITIONED HER SHAMPOODED HER HAIR. AND CHANGED HER. CAREGIVER VERY HELPFUL.
--- NOTE | 2020-11-12 18:05 | NUR ---
CAREGIVER ASSIST WITH EVENING MEAL. PT REPOSITIONED AND RESTING EYES CLOSED NOW.
--- NOTE | 2020-11-12 19:20 | NUR ---
Report received from Jennifer RIGGINS. Pt resting in bed on R side, positioned with pillows. IVF infusing WNL. Curtain open, close to nurses station. Will continue plan of care.
--- NOTE | 2020-11-12 21:20 | NUR ---
This RN and COVER REMOVER in room to reposition patient and change attends. Scheduled medications administered, crushed with applesauce, pt tolerated well. Repositioned in bed with pillows, attends changed, only scant amount vaginal bleeding noted, no BM. Jerez care complete, patent. Sips of water taken with encouragement and assistance. Calm, cooperative with cares. Bed alarm and side rails up for safety. Will continue plan of care.
--- NOTE | 2020-11-12 23:34 | NUR ---
Repositioned pt with propellant charge loader. IVF infusing WNL.
--- NOTE | 2020-11-13 01:30 | NUR ---
Pt repositioned in bed with ELECTION JUDGE assist, calm and cooperative with cares. IVF infusing WNL. Will continue to monitor
--- NOTE | 2020-11-13 03:35 | NUR ---
Repositioned patient in bed with pillows. No further needs
--- NOTE | 2020-11-13 05:20 | NUR ---
Repositioned with TAX CREDIT LEASING CONSULTANT. Checked for bowel incontinence, none at this time. Jerez emptied. VSS, I/O's completed. IVF infusing WNL. No further apparent needs.
--- NOTE | 2020-11-13 07:44 | NUR ---
this rn received report from nathalie mark. pt appears to be resting comfortably with respirations noted.
--- NOTE | 2020-11-13 08:10 | NUR ---
PATIENT IS IN BED, WILL CHECK WITH NURSE ON BREAKFAST TRAY AND WHO WILL ASSIST PATIENT WITH EATING, NOTHING ELSE TO REPORT AT THIS TIME
--- NOTE | 2020-11-13 08:40 | NUR ---
WITH ASSISTANCE FROM JOSEPH MORRIS PT TOLERATED BEING REPOSITIONED WELL.
--- NOTE | 2020-11-13 08:40 | NUR ---
THIS RN IN PTS ROOM TO GIVE PT HER MORNING MEDS AND DO PTS MORNING ASSESSMENT. PT ABLE TO TAKE MEDS WELL WHEN CRUSHED AND PUT IN APPLESAUCE.
--- NOTE | 2020-11-13 13:02 | NUR ---
THIS RN IN PTS ROOM TO GIVE PT HER POTASSIUM. PT APPEARS TO BE RESTING COMFORTABLY AND WAS ABLE TO TAKE PILLS WELL WITH APPLESAUCE. PT DOES REFUSE TO DRINK ORANGE JUICE AND WATER AT THIS TIME BY SHAKING HER HEAD NO. PT IS RECIEVING FLUIDS AND HAS ADEQUATE OUTPUT
--- NOTE | 2020-11-13 14:45 | NUR ---
THIS RN IN PTS ROOM TO DO PT ASSESSMENT. PTS CAREGIVER IN ROOM, NAHUN. THIS RN AND WITH CYSTALS ASSISTANCE CHANGED PTS BRIEFS. PT HAD MODERATE AMOUTN OF VAGINAL DISCHARGE NOTED AND SOME MUCOUS/ CLEAR LOOKING GOUP OVER HER REAR-END. PT REPOSTITIONED AND APPEARS TO BE COMFORTALBE BY WHAT THE RENU STATED
--- NOTE | 2020-11-13 19:20 | NUR ---
Report received from Morena RIGGINS. patient repositioned in bed with pillows, IVF infusing WNL. Meri patent. Will continue plan of care
--- NOTE | 2020-11-13 19:59 | NUR ---
Sched. medications administered, pt repositioned in bed with pillow for comfort. Sips of water taken with straw. No further needs apparent at this time.
--- NOTE | 2020-11-13 21:30 | NUR ---
Scheduled medications administered, assessment complete. DRUM BUILDER in room to assist with repositioning in bed. Pt able to swallow medications with applesauce easily. No BM noted, only thin, mucus like smear, message sent to MD to update on this. Pt abdomen firm, mildly distended. Calzada emptied, calzada care complete. Allevyn in place to L buttock for the small shear. Mild redness noted. Heel protectors in place. Will continue frequent turns.
--- NOTE | 2020-11-13 23:35 | NUR ---
Repositioned pt in bed using pillows. Resting with eyes closed, calm. New bag IVF hung. No further needs.
--- NOTE | 2020-11-14 01:45 | NUR ---
This RN and SALES DEPARTMENT MANAGER in room to reposition patient. IVF infusing WNL. Offered water, pt did not take any sips. Will continue to monitor
--- NOTE | 2020-11-14 03:40 | NUR ---
Pt repositioned with pillows to L lying side. IVF infusing WNL. Pt calm, easily turned. No further needs at this time.
--- NOTE | 2020-11-14 07:42 | NUR ---
this rn received report from nathalie mark. pt appears to be awake this am and will need to be repositioned for breakfast. pt is nonverbal but appears to be comfortable
--- NOTE | 2020-11-14 08:20 | NUR ---
THIS RN IN PTS ROOM TO GIVE PT HER MORNING MEDS. PT IS NON VERBAL, WITH ASSISTANCE FROM CHAPIN MORRIS TO PLACE A SUPPOSITORY FOR PT. PT ABLE TO TAKE PILLS WELL WITH FOOD WHEN CRUSHED.
--- NOTE | 2020-11-14 09:45 | NUR ---
PATIENT RESTING QUIETLY IN BED, HAS HER DOLL AND BLANKET IN PLACE. SHE IS AWAKE AND SEEMS COMFORTABLE. NO CAREGIVERS PRESENT AT THIS TIME. CALLED [facility], SPOKE WITH HER CAREGIVER PITO GEORGE [phone]. DISCUSSED POSSIBLE DISCHARGE TO HOME TODAY OR TOMORROW. SHE STATES THE PEOPLE WHO HAVE BEEN HERE FEEL SHE IS CLOSE TO BASELINE. BECAUSE OF THE WEATHER/ROADS TODAY SHE ASKS FOR DISCHARGE TOMORROW. ALSO TO HAVE RX SENT TO [facility] THEIR [facility] DELIVERY IS NOT ABLE TO COME DUE TO ROADS. ALSO TO HAVE DISCHARGE ORDERS/RX FAXED TO HER TO THEY CAN REVIEW AND MAKE SURE THEY HAVE ALL THEY NEED. FAX TO [phone]. DISCUSSED WITH DR ORTEGA, HE WILL WRITE ORDERS TODAY FOR PLANNED DISCHARGE TOMORROW. DISCUSSED WITH STAFF AND THEY WILL SEND RX AND FAX DISCHARGE ORDERS TO [facility].
[2020-11-14] MEDS ORDERED: LISINOPRIL20 MG PO (10:50)
[2020-11-14] MEDS ORDERED: CEFDINIR300 MG PO (10:51)
--- NOTE | 2020-11-14 11:01 | NUR ---
v/s and I&Os done and recorded no other needs at this time. call light with in reach.
--- NOTE | 2020-11-14 11:21 | NUR ---
THIS RN IN PTS ROOM WITH MEEK RIGGINS FROM [facility]OUND [facility] TO SEE PTS WOUND ON HER LEFT CHEEK. SHE STATES THAT THIS IS A SHEER WOUND. MEEK WILL PUT IN AN ORDER
--- NOTE | 2020-11-14 11:36 | NUR ---
PT IS SEEN FOR A WOUND CONSULT FOR A LEFT BUTTOCK SHEARING WOUND. THE PT IS NON-VERBAL AND WHEELCHAIR BOUND AT BASELINE. THE AREA MEASURES 2.5CM X 2.5CM X 0.1CM. THE BASE OF THE WOUND IS CLEAN, NON-GRANULATING TISSUE. THE EDGES ARE INTACT, NO UNDERMINGING OR TUNNELING PRESENT. THERE IS NO EXUDATE. THERE ARE NO SIGNS OF AN INFECTION. THE PERIWOUND SKIN IS INTACT AND VIABLE. THERE ARE NO INDICATIONS THAT THE PT IS EXPERIENCING PAIN. THE AREA IS CLEANSED WITH WOUND CLEANSER. CAVILLON ADVANCED SKIN PREP IS APPLIED TO PERIWOUND SKIN. COLLAGEN IS USED TO COVER THE WOUND, THEN SECURE IN PLACE WITH AN ALLEVYN BORDER FOAM.
--- NOTE | 2020-11-14 12:05 | NUR ---
THIS RN CALLED JESSICA AT [facility] TO UPDATE HER ABOUT THE PTS STATUS
--- NOTE | 2020-11-14 14:44 | NUR ---
THIS RN IN PTS ROOM TO REPOSITION PT OFF OF HER LEFT HIP. PT TOLERATED WELL BUT BECAME VOCAL WHEN SHE WAS REPOSITIONED
--- NOTE | 2020-11-14 19:01 | NUR ---
PATIENT REPOSITIONED ONTO LEFT SIDE, CAREGIVER IN ROOM. CALL LIGHT IN REACH. NO FURTHER NEEDS AT THIS TIME.
--- NOTE | 2020-11-14 19:54 | NUR ---
REPORT RECEIVED FROM BRETT RN, WILL CONTINUE PLAN OF CARE.
--- NOTE | 2020-11-14 20:53 | NUR ---
ARIELLA, TAMRA STOCKTON, FED PT VANILLA YOGURT, STATES SHE MIGHT WANT MORE. WILL INFORM PT PRIMARY RN'S.
--- NOTE | 2020-11-14 21:48 | NUR ---
PATIENT WAS ASLEEP IN BED WHEN THIS TRAFFIC MAINTENANCE SUPERVISOR ENTERED ROOM. VITALS AND I&O COMPLETED. HYDRATION ENCOURAGED, BUT ONLY TWO SMALL SIPS TAKEN BY PATIENT. CHUCKS AND DEPENDS CHANGED ON PATIENT. PATIENT SEEMED TO HAVE MORE LIFE ENERGY TO ASSIST AND HOLD ON TO SIDE RAILS VAISHNAVI LIM CHANGED DEPENDS AND DID DAMON CATH CARE. PATIENT REPOSITIONED ON LEFT SIDE WITH PILLOWS UNDER RIGHT. SIDE RAILS UP X4. VAISHNAVI PASCUAL NOTIFIED OF SLIGHTLY ELEVATED BP. NO FUTHER NEEDS AT THIS TIME.
--- NOTE | 2020-11-14 22:13 | NUR ---
THIS RN IN TO ASSESS PT AND ADMINISTER ORDERED MEDICATIONS. PT LAYING IN BED AWAKE, IVF INFUSING ORDERED. ORDERED MEDICATIONS ADMINISTERED PO. ASSESSMENT COMPLETE. DAMON DRAINING URINE. PT APPEARS TO BE IN NO APPARENT DISTRESS, WILL CONTINUE PLAN OF CARE. BED IN LOWEST POSITION.
--- NOTE | 2020-11-14 23:54 | NUR ---
PATIENT WAS REPOSITIONED ON HER RIGHT SIDE WITH PILLOWS UNDER LEFT SIDE. NO FUTHER NEEDS KNOWN AT THIS TIME.
--- NOTE | 2020-11-15 02:01 | NUR ---
PATIENT WAS SLEEPIMG WHEN THIS PATROL CAPTAIN AND VAISHNAVI PASCUAL ENTERED ROOM. PATIENT READJUSTED TO HAVE PILLOWS UNDER RIGHT SIDE OF. NO FUTHER NEEDS AT THIS TIME.
--- NOTE | 2020-11-15 02:05 | NUR ---
THIS RN IN TO TURN PT. WITH THE HELP OF MARKER MACHINE. PT INITIALLY SLEEPING IN BED AND IN NO APPARENT DISTRESS. PT AWOKE DURING REPOSITIONING AND BEGIN TO MOAN. PT NOW REPOSITIONED ON HER LEFT SIDE, IVF INFUSING ORDERED. PT IS IN NO APPARENT DISTRESS, WILL CONTINUE PLAN OF CARE.
--- NOTE | 2020-11-15 03:50 | NUR ---
THIS RN IN TO REPOSITION PT WITHT HE HELP OF VAISHNAVI DORMAN. PT SLEEPING AND WOKE BRIEFLY DURING REPOSITIONING. PT IN NO APPARENT DISTRESS AT THIS TIME, WILL CONTINUE PLAN OF CARE. IVF INFUSING ORDERED, DAMON DRAINING, BED IN LOWEST POSITION.
--- NOTE | 2020-11-15 05:30 | NUR ---
IN PATIENT ROOM FOR VIATLS AND I&O. DEPENDS AND CHUCKS CHANGED. DAMON AND GISELA CARE. HAIR CARE. PATIENT POSITIONED ON LEFT SIDE WITH PILLOWS UNDER RIGHT. THERE WAS VAGINAL BLEEDING AND MUCUS NOTED. RN ANKUR AND LAKIA AWARE. PATIENT TOLERATED ROLLING WELL AND DIDN'T SEEM TOO UNCOMFORTABLE WITH ALL THE MOVEMENT. NO FURTHER NEEDS AT THIS TIME.
--- NOTE | 2020-11-15 05:52 | NUR ---
THIS RN IN TO ASSESS PT, TAKE VITALS, AND REPOSITION. PT LAYING IN BED SLEEPING AND AWOKE. RN LAKIA AND NURSE DIRECTOR OF RECRUITMENT TRAVIS IN TO ASSIST. VS STABLE, PT ASSESSED, PERICARE/DAMON CARE DONE. MUCUS NOTED IN OLD ATTENDS WELL VAGINAL BLOOD. NEW ATTENDS PLACED. PT THEN REPOSITIONED ONTO LEFT SIDE WITH PILLOWS. PT IN NO APPARENT DISTRESS AT THIS TIME, IVF INFUSING ORDERED, DAMON DRAINING, WILL CONTINUE PLAN OF CARE.
--- NOTE | 2020-11-15 09:11 | NUR ---
PATIIENT WAS TURNED ONTO RIGHT SIDE. AM CARE WAS DONE. PATIENT ATE 50% OF HER BREAKFAST. CALL LIGHT IS IN REACH. NO FURTHER NEEDS AT THIS TIME.
--- NOTE | 2020-11-15 09:45 | NUR ---
Spoke with Shannan from [employer]. She is on her way into the office. She plans on picking up pt up between 10:30 and 11:00. She is unsure if she has received the fax I sent of DC summary and medication list. She will call if she did not recieve. Otherwise, she will be here between 10:30- and 11:00. Charge nurse updated.
--- NOTE | 2020-11-15 11:08 | NUR ---
REPORT RECEIVED FROM NIGHT RN AND PT. CARE RESUMED. GROUP PRACTICE PEDIATRICIAN IN THE ROOM FEEDING BREAKFAST. PT. IN UPRIGHT POSITION AND ALERT. MORNING PO MEDS GIVEN IN APPLESAUCE. PT. TOLERATED WELL. IV SITE WNL AND FLUSHED WELL. LUNGS CLEAR AND BREATHING UNLABORED. PT. ASSISTED BY 2 RN WITH REPOSITIONING. PT. GRUNTING OCCASIONALLY. PT. LEFT RESTING IN BED
== END 2020-11-15 11:05 | disposition home or self-care (01) | DRG 698 ==
LOC: ED 10:44 → CCU 14:33 → MS 11-10 12:10
PROVIDERS: ADMIT Internal Medicine; ATTEND Internal Medicine
DX: T83.511A Infection and inflammatory reaction due to indwelling urethral catheter, initial encounter (principal); A41.59 Other Gram-negative sepsis; R65.20 Severe sepsis without septic shock; G93.41 Metabolic encephalopathy; N30.00 Acute cystitis without hematuria; N17.9 Acute kidney failure, unspecified; Z20.822 Contact with and (suspected) exposure to COVID-19; E87.5 Hyperkalemia; I10 Essential (primary) hypertension; K21.9 Gastro-esophageal reflux disease without esophagitis; R62.50 Unspecified lack of expected normal physiological development in childhood; G89.4 Chronic pain syndrome; Z66 Do not resuscitate; Z79.899 Other long term (current) drug therapy
CPT/HCPCS: 36415; 71045; 80048; 80053; 83605; 83735; 84132; 85025; 96365; 99285-25; C9113; C9803; J0696; J1650; J3475; J3480; J7030; J7042; J7060; J7121; U0003

== ENCOUNTER 2020-12-30 12:04 | Emergency (ER) | payer MEDICARE, OTHER ==
[~2020-12-30] VITALS: Ht 157.5 cm; Wt 98.5 kg
[~2020-12-30 12:04] MED LIST changes: +CEFDINIR300 MG PO; +LISINOPRIL20 MG PO; +MEGESTROL ACETA40 MG PO
--- OUTSIDE RECORDS SUMMARY | 2020-12-30 12:56 | XMS ---
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 Care History Medical/Surgical 11/10/2020 [facility] Patient brought in to Dr. Ron by caregiver.\T\nbsp; Dr. Ron advised to present patient to ER. Patient admitted to [facility]. 10/26/2019 [facility] - CATH CHANGE APT -SCHEDULED WITH DR RON-UROLOGIST- 10/27/19. 10/12/2019 [facility] Follow up on 10/15/[address] Bienvendio Brown VISIT COUNT (12 MO.) 6 [facility]. TOTAL 6 NOTE: Visits indicate total known visits. ED/UCC VISIT TRACKING (12 MO.) 12/30/2020 12:04 [facility] TYPE: Emergency COMPLAINT: - CATHETER PROBLEM 11/09/2020 10:45 [facility] TYPE: Emergency COMPLAINT: - ALTERED MENTAL STATUS 07/20/2020 09:39 [facility] TYPE: Emergency COMPLAINT: - LATHARGIC 07/16/2020 11:04 [facility] TYPE: Emergency COMPLAINT: - VAGINAL BLEEDING DIAGNOSES: - Abnormal uterine and vaginal bleeding, unspecified - Postmenopausal bleeding 06/17/2020 11:58 [facility] TYPE: Emergency COMPLAINT: - POSSIBLE DEHYDRATION DIAGNOSES: - Other senior living (current) drug therapy - Headache - Gastro-esophageal reflux disease without esophagitis 06/12/2020 14:43 [facility] TYPE: Emergency COMPLAINT: - CATHETER PROBLEM DIAGNOSES: - Hemorrhage due to genitourinary prosthetic devices, implants and grafts, initial encounter - Other senior living (current) drug therapy - Hemorrhage due to genitourinary prosthetic devices, implants and grafts, initial encounter - Gastro-esophageal reflux disease without esophagitis INPATIENT VISIT TRACKING (12 MO.) 11/09/2020 14:33 [facility] TYPE: Medical Surgical COMPLAINT: - SEVERE SEPSIS DIAGNOSES: - Sepsis, unspecified organism - Essential (primary) hypertension - Unspecified lack of expected normal physiological development in childhood - Hyperkalemia - Acute cystitis without hematuria - Do not resuscitate - Metabolic encephalopathy - Other senior living (current) drug therapy - Other Gram-negative sepsis - Gastro-esophageal reflux disease without esophagitis - Other Gram-negative sepsis - Metabolic encephalopathy - Essential (primary) hypertension - Hyperkalemia - Severe sepsis without septic shock - Chronic pain syndrome - Unspecified lack of expected normal physiological development in childhood - Severe sepsis without septic shock - Acute kidney failure, unspecified - Acute cystitis without hematuria - Do not resuscitate - Chronic pain syndrome - Gastro-esophageal reflux disease without esophagitis - Other ferry terminal supervisor (current) drug therapy - Infection and inflammatory reaction due to indwelling urethral catheter, initial encounter - Acute kidney failure, unspecified - Infection and inflammatory reaction due to indwelling urethral catheter, initial encounter 07/20/2020 12:31 [facility] TYPE: Medical [...] other urinary catheter, initial encounter - Other ferry terminal supervisor (current) drug therapy - Retention of urine, unspecified - Gastro-esophageal reflux disease without esophagitis - Sepsis, unspecified organism - Unspecified lack of expected normal physiological development in childhood - Chronic pain syndrome - Gastro-esophageal reflux disease without esophagitis - Acute cystitis without hematuria - Metabolic encephalopathy - Other ferry terminal supervisor (current) drug therapy - Unspecified mood [affective] disorder - Contact with and (suspected) exposure to other viral communicable diseases [email or web address]
== END 2020-12-30 16:07 | disposition home or self-care (01) ==
LOC: ED 12:04
DX: R82.90 Unspecified abnormal findings in urine (principal); K21.9 Gastro-esophageal reflux disease without esophagitis; Z79.899 Other long term (current) drug therapy
CPT/HCPCS: 80053; 81001; 83605; 85025; 99283; J7030

== ENCOUNTER 2021-01-01 18:48 | Emergency (ER) | payer MEDICARE, OTHER ==
[~2021-01-01] VITALS: Ht 157.5 cm; Wt 98.5 kg
--- OUTSIDE RECORDS SUMMARY | 2021-01-01 18:52 | XMS ---
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 Care History Medical/Surgical 11/10/2020 [facility] Patient brought in to Dr. Ron by caregiver.\T\nbsp; Dr. Ron advised to present patient to ER. Patient admitted to [facility]. 10/26/2019 [facility] - CATH CHANGE APT -SCHEDULED WITH DR RON-UROLOGIST- 10/27/19. 10/12/2019 [facility] Follow up on 10/15/[address] Bienvenido Brown VISIT COUNT (12 MO.) 7 [facility]. TOTAL 7 NOTE: Visits indicate total known visits. ED/UCC VISIT TRACKING (12 MO.) 01/01/2021 18:49 [facility] TYPE: Emergency COMPLAINT: - NOT EATING, DRINKING, CONSTIPATION 12/30/2020 12:[address] [facility] TYPE: Emergency [...] COMPLAINT: - POSSIBLE DEHYDRATION DIAGNOSES: - Other ship scaler (current) drug therapy - Headache - Gastro-esophageal reflux disease without esophagitis 06/12/2020 14:43 [facility] TYPE: Emergency COMPLAINT: - CATHETER PROBLEM DIAGNOSES: - Hemorrhage due to genitourinary prosthetic devices, implants and grafts, initial encounter - Other long-term (current) drug therapy - Hemorrhage due to genitourinary prosthetic devices, implants and grafts, initial encounter - Gastro-esophageal reflux disease without esophagitis INPATIENT VISIT TRACKING (12 MO.) 11/09/2020 14:[address] [facility] TYPE: Medical Surgical COMPLAINT: - SEVERE SEPSIS DIAGNOSES: - Sepsis, unspecified organism - Essential (primary) hypertension - Unspecified lack of expected normal physiological development in childhood - Hyperkalemia - Acute cystitis without hematuria - Do not resuscitate - Metabolic encephalopathy - Other long-term (current) drug therapy - Other Gram-negative sepsis [...] esophagitis - Other long-term (current) drug therapy - Infection and inflammatory reaction due to indwelling urethral catheter, initial encounter - Acute kidney failure, unspecified - Infection and inflammatory reaction due to indwelling urethral catheter, initial encounter 07/20/2020 12:[address] [facility] TYPE: Medical Surgical COMPLAINT: - SEPSIS [...] other urinary catheter, initial encounter - Other ship scaler (current) drug therapy - Retention of urine, unspecified - Gastro-esophageal reflux disease without esophagitis - Sepsis, unspecified organism - Unspecified lack of expected normal physiological development in childhood - Chronic pain syndrome - Gastro-esophageal reflux disease without esophagitis - Acute cystitis without hematuria - Metabolic encephalopathy - Other ship scaler (current) drug therapy - Unspecified mood [affective] disorder - Contact with and (suspected) exposure to other viral communicable diseases [email or web address]
[2021-01-01] MEDS ORDERED: CEFPODOXIME PR200 MG PO (21:32)
--- NOTE | 2021-01-02 15:40 | EKG ---
[facility] [address] [place], [place] [address] Signed Normal sinus rhythm Normal ECG No previous ECGs available Confirmed by ANN-MARIE ORTEGA DO ([id number]) on 01/02/2021 3:40:15 PM Electronically Signed By: ANN-MARIE ORTEGA DO 01/02/21 1540 PATIENT NAME: ABDIRAHMANYOONHILARY Electrocardiogram DATE OF : 43 PHYSICIAN: ANN-MARIE ORTEGA DO REPORT #: [id number] REPORT IS CONFIDENTIAL AND NOT TO BE RELEASED WITHOUT AUTHORIZATION
== END 2021-01-01 22:50 | disposition home or self-care (01) ==
LOC: ED 18:48
DX: N39.0 Urinary tract infection, site not specified (principal); K59.00 Constipation, unspecified
CPT/HCPCS: 71045; 74018; 80053; 81001; 83735; 85025; 87077; 87088; 87186; 93005; 93010; 96374; 99284-25; J0696; J7121

== ENCOUNTER 2021-01-05 22:10 | Emergency (ER) | payer MEDICARE, OTHER ==
[~2021-01-05] VITALS: Ht 157.5 cm; Wt 98.5 kg
[~2021-01-05 22:10] MED LIST changes: +CEFPODOXIME PR200 MG PO
--- OUTSIDE RECORDS SUMMARY | 2021-01-05 22:12 | XMS ---
PreManage Notification: HILARY EDWARDS [employer] Events No recent Security Events currently on file CRITERIA MET - Group Notification - 6 ED Visits in 6 Months - [facility] - Has Care Guidelines - History of Sepsis Dx - [facility] - 2 Visits in 30 Days CARE PROVIDERS GUY MCINTOSH Internal Medicine 04/08/2019-Current PHONE: [phone] Ignacia has no Care Guidelines for this patient. Care History Medical/Surgical 11/10/2020 [facility] Patient brought in to Dr. Ron by caregiver.\T\nbsp; Dr. Ron advised to present patient to ER. Patient admitted to [facility]. 10/26/2019 [facility] - CATH CHANGE APT -SCHEDULED WITH DR RON-UROLOGIST- 10/27/19. 10/12/2019 [facility] Follow up on 10/15/[address] Bienvenido Brown VISIT COUNT (12 MO.) 8 [facility] H. TOTAL 8 NOTE: Visits indicate total known visits. ED/UCC VISIT TRACKING (12 MO.) 01/05/2021 22:[address] [facility] [place] TYPE: Emergency COMPLAINT: - CATHETER PROBLEM 01/01/2021 18:[address] 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 - Gastro-esophageal reflux disease without esophagitis - Unspecified abnormal findings in urine 11/09/2020 10:45 [facility] TYPE: Emergency COMPLAINT: - ALTERED MENTAL STATUS 07/20/2020 09:39 [facility] TYPE: Emergency COMPLAINT: - LATHARGIC 07/16/2020 11:04 [facility] TYPE: Emergency COMPLAINT: - VAGINAL BLEEDING DIAGNOSES: - Abnormal uterine and vaginal bleeding, unspecified - Postmenopausal bleeding 06/17/2020 11:58 [facility] TYPE: Emergency COMPLAINT: - POSSIBLE DEHYDRATION DIAGNOSES: - Other fci (current) drug therapy - Headache - Gastro-esophageal reflux disease without esophagitis 06/12/2020 14:43 [facility] TYPE: Emergency COMPLAINT: - CATHETER PROBLEM DIAGNOSES: - Hemorrhage due to genitourinary prosthetic devices, implants and grafts, initial encounter - Other fci (current) drug therapy - Hemorrhage due to [...] not resuscitate - Metabolic encephalopathy - Other terminal block assembler (current) drug therapy - Other Gram-negative sepsis [...] Gastro-esophageal reflux disease without esophagitis - Other fci (current) drug therapy - Infection and inflammatory [...] urinary catheter, initial encounter - Other terminal block assembler (current) drug therapy - Retention of urine, unspecified - Gastro-esophageal reflux disease without esophagitis - Sepsis, unspecified organism - Unspecified lack of expected normal physiological development in childhood - Chronic pain syndrome - Gastro-esophageal reflux disease without esophagitis - Acute cystitis without hematuria - Metabolic encephalopathy - Other fci (current) drug therapy - Unspecified mood [affective] disorder - Contact with and (suspected) exposure to other viral communicable diseases [email or web address]
[2021-01-05] MEDS ORDERED: PEG3350510 GM (22:33)
== END 2021-01-06 01:00 | disposition home or self-care (01) ==
LOC: ED 22:10
PROC: 0T9B70Z Drainage of Bladder with Drainage Device, Via Natural or Artificial Opening (ICD-10-PCS; principal; 2021-01-05)
PROC: 4A1D7LZ Monitoring of Urinary Volume, Via Natural or Artificial Opening (ICD-10-PCS; 2021-01-05)
DX: T83.038A Leakage of other urinary catheter, initial encounter (principal); K21.9 Gastro-esophageal reflux disease without esophagitis; Z79.899 Other long term (current) drug therapy
CPT/HCPCS: 51702; 51798; 99283-25